=== PATIENT | male | born 1960 | race Caucasian/White ===

== ENCOUNTER → 2016-10-24 | Outpatient (CLI) | payer BC | END | disposition home or self-care (01) | LOC: C.LABBC 09:36 | PROVIDERS: ATTEND Internal Medicine | DX: Z11.59 Encounter for screening for other viral diseases (principal) ==

== ENCOUNTER → 2016-11-29 | Outpatient (CLI) | payer BC ==
[2016-11-29 10:58] LABS: ESTIMATED AVERAGE GLUCOSE 131 mg/dl; HA1C FLAG Normal (Normal)
[2016-11-29 14:01] LABS: ALT/SGPT 53 U/L (12-78); AST/SGOT 28 U/L (15-37); BLOOD UREA NITROGEN 20 mg/dl (7-18); BUN/CREATININE RATIO 18.3 (10-20); CALCIUM 8.7 mg/dl (8.5-10.1); CARBON DIOXIDE 26 mmol/L (21-32); CHLORIDE 105 mmol/L (98-107); GLUCOSE 124 mg/dl (70-99); POTASSIUM 4.5 mmol/L (3.5-5.1); SODIUM 138 mmol/L (136-145)
[2016-11-29 14:04] LABS: ALB/GLOB RATIO 1.2 (0.9-2); ALKALINE PHOSPHATASE 74 U/L (45-117); CHOLESTEROL 183 mg/dl (0-200); HDL CHOLESTEROL 62 mg/dl; LDL CHOLESTEROL CALCULATED 99 mg/dl; TRIGLYCERIDES 110 mg/dl (0-150); VERY LOW DENSITY LIPOPROT CALC 22 mg/dl
== END | disposition home or self-care (01) ==
LOC: C.LABBC 09:02
PROVIDERS: ATTEND Internal Medicine
DX: K76.0 Fatty (change of) liver, not elsewhere classified (principal)

== ENCOUNTER → 2017-06-03 | Outpatient (CLI) | payer BC ==
[2017-06-03 10:55] LABS: ALT/SGPT 67 U/L (12-78); AST/SGOT 39 U/L (15-37); BLOOD UREA NITROGEN 19 mg/dl (7-18); BUN/CREATININE RATIO 17.3 (10-20); CALCIUM 8.8 mg/dl (8.5-10.1); CARBON DIOXIDE 26 mmol/L (21-32); CHLORIDE 103 mmol/L (98-107); CHOLESTEROL 205 mg/dl (0-200); CREATININE 1.09 mg/dl (0.60-1.40); GLUCOSE 116 mg/dl (70-99); POTASSIUM 4.7 mmol/L (3.5-5.1); SODIUM 138 mmol/L (136-145)
[2017-06-03 11:00] LABS: ALB/GLOB RATIO 1.2 (0.9-2); ALKALINE PHOSPHATASE 73 U/L (45-117); CHOLESTEROL/HDL RATIO 3.2; HDL CHOLESTEROL 65 mg/dl; LDL CHOLESTEROL CALCULATED 117 mg/dl; TRIGLYCERIDES 116 mg/dl (0-150); VERY LOW DENSITY LIPOPROT CALC 23 mg/dl
[2017-06-03 11:01] LABS: ESTIMATED AVERAGE GLUCOSE 131 mg/dl; HA1C FLAG Normal (Normal)
== END | disposition home or self-care (01) ==
LOC: C.LABBC 08:57
PROVIDERS: ATTEND Internal Medicine
DX: E78.5 Hyperlipidemia, unspecified (principal); K76.0 Fatty (change of) liver, not elsewhere classified; R73.03 Prediabetes; I10 Essential (primary) hypertension

== ENCOUNTER → 2018-03-05 | Outpatient (CLI) | payer OTHER ==
--- NOTE | 2018-03-06 06:13 | PAP/PSG TECHNICIAN REPORT ---
[facility] Clearing Distribution Clerk Polysomnogram Report Study name: None Report date: 03/06/2018 Study date: 03/05/2018 Referring Physician: DR. Santa LIU Name: JUAN C RICH Interpreting Physician: Misha Hobson M.D. Date of : 1960 Clearing Distribution Clerk: Janell Tinoco, PSGT. Sex: Male Age: 57 StudyType: PSG Weight: 274 lbs Height: 57 years, Height 6' 1.5" Neck Circum:18 inches BMI: 35.66 Medications: Atorvasatin 20 mg, Lisinopril 5 mg, Multi-vit., Fish Oil, Milk Thisle, Cialis 20 mg. Patient History 57-year-old male in room 7, presents for a split night study. states that he snores and has episodes of apnea. He also suffers from fatigue syndrome. Ess= 6 Neck= 18 inches Parameters Monitored NPSG: E1-M2, E2-M1, Fp1-M2, Fp2-M1, F3-M2, F4-M2, F4-M1, C3-M2, C4-M2, C4-M1, O1-M2, O2-M2, O2-M1, T3-M2, T4-M1, P3-M2, P4-M1, CHIN1, CHIN2, HR, EKG, Legs, PFLOW, SNOR, FLOW, CFLOW, Tidal Volume, THOR, ABDO, SpO2, PLTH, CPRESS, ETCO2 Wave, ETCO2, pH Sleep Architecture Sleep Stages Time at Lights Off 10:20:19 PM STAGES Time (min.) TST (%) Time at Lights On 5:36:19 AM Wake 97.5 -- Total Recording Time (TRT) 417.50 min. N1 12.0 4 Total Sleep Period (TSP) 328.0 min. N2 233.0 73 Total Sleep Time (TST) 320.0min. N3 0.0 0 Awake Time 97.5 min. REM 75.0 23 Wake after Sleep Onset 67.5 min. Sleep Efficiency (SE) 77 % Sleep Onset Latency (ABBI) 48.5 min. Number of Stage 1 Shifts None Awakenings 6 Stage Changes 28 Number of REM periods 3 REM 75.0 23 REM Latency 64.5 min. NREM 245.0 77 Body Position Analysis Supine Right Left Side Prone Vertical Total Sleep Time (min.) 72.8 36.5 225.5 262.01 0.0 0.0 Total Sleep Time (%) 18% 11% 70% 82 0% N/A% Total Sleep Time REM (min.) 0.0 21.0 54.0 None 0.0 0.0 Total Sleep Time NREM (min.) 58.0 15.5 171.5 None 0.0 0.0 Intermittent Wake (min.) 14.8 42.6 40.1 None 0.0 0.0 Total Sleep Period (%) 18% None None None None None Arousals Myoclonus (PLM) * Events Count Index Events Count Index Spontaneous 22 4 Events Awake (PLMW) 2 1.2 Respiratory 3 0.6 Events Asleep w/ Arousal (PLMA) 13 2.4 PLM 13 2 Events Asleep w/o Arousal (PLMS) 563 105.6 Snoring 1 0 Total Asleep 576 108.0 Total 39 7 Total 578 83 Respiratory Analysis * CA OA MA CH H RERA Total Count 0 0 1 0 32 0 33 Index 0.0 0.0 0.2 0 6.0 0 6.2 Mean Duration 0.0 0.0 18.6 0.00 21.0 0.0 20.9 Longest Duration 0.0 0.0 18.6 0.00 18.6 0.0 44.0 Respiratory Event Summary Total Supine ~Supine Right Left Prone REM NREM Apneas Count 1 0 1 0 1 N/A 0 1 Index 0.2 0 0 0.0 0.3 N/A 0 0 Hypopneas (4% Desat) Count 32 3 29 23 6 N/A 25 7 Index 6.0 3.1 7 37.8 1.6 N/A 20.0 1.7 Apneas & All Hypopneas Count 33 3 30 23 7 N/A 25 8 Index 6.2 3 7 38 2 N/A 20.0 2.0 Respiratory Events (Public Stenographer+All Hyp+RERA) Count 33 3 30 23 7 N/A 25 8 Index 6.2 3 7 37.8 1.9 N/A 20.0 2.0 Respiratory Related Arousal Count 3 3 3 2 1 N/A 2 1 Index 0.6 0 1 3 0 N/A 2 0 Snoring Analysis Supine Right Left Prone REM NREM Total Snore duration 12.0 min Snores count 389 98 85 N/A 51 521 572 Snore mean duration 1.3 Sec Snores index 402 161 23 N/A 40.8 127.6 107.3 TST with snoring (%) 3.7% Desaturation Event Summary: Minimum %SpO2 Event Count Mean/Min/Max Duration(sec.) Desaturation Index % Time In Bed > 90 36 27.7 / 9.5 / 53.0 7.4 75.6 86 - 90 8 27.3 / 16.8 / 45.8 5.2 23.9 81 - 85 0 N/A 0.0 0.5 76 - 80 0 N/A 0.0 0.0 71 - 75 0 N/A 0.0 0.0 66 - 70 0 N/A 0.0 0.0 61 - 65 0 N/A 0.0 0.0 56 - 60 0 N/A 0.0 0.0 51 - 55 0 N/A 0.0 0.0 < 50 0 N/A 0.0 0.0 Total REM NREM Awake <50% 0.0 min. 0.0 min. 0.0 min. 0.0 min. 51 - 60% 0.0 min. 0.0 min. 0.0 min. 0.0 min. 61 - 70% 0.0 min. 0.0 min. 0.0 min. 0.0 min. 71 - 80% 0.0 min. 0.0 min. 0.0 min. 0.0 min. 81 - 90% 94.3 min. 27.8 min. 62.1 min. 4.4 min. 91 - 100% 292.2 min. 47.2 min. 182.9 min. 62.1 min. Average 92 91 91 93 Minimum SpO2 81 81 85 86 Desaturation Event Index 5.7 17.6 4.4 0.6 # Desat. Events below 89% 23 16 7 0 Time(%) with Saturation below 89% 4.1 2.1 1.8 0.2 Time(min.) with Saturation below 89% 15.7 8.0 7.0 0.7 Time (mins) REM (mins) NREM (mins) % of TST SpO2 Below 90% 37 21 N16 11.4 SpO2 Below 88% 11 0 0 3 Heart Rate Analysis Min (bpm) Max (bpm) Average (bpm) Awake 51 127 66 NREM 49 83 57 REM 49 88 57 Overall 49 88 57 Supplemental O2 Values Minimum O2 level: None Value Start Time End Time Clearing Distribution Clerk Comments PSG Study Mr. Rich slept in the right, left, supine and prone positions. No cardiac arrhythmia. PLM's noted. No bruxism noted. Snoring was noted and scored as a 2 on a scale of 1 through 5. (0=no snoring, 5=snoring loud enough to be heard through a closed door or down the zayas way) Mr. Rich awoke to use the restroom one time during the night. Mr. Rich stated, I did sleep as well as I do when I am in my own bed. The final report will be interpreted and signed by a sleep physician. The completed physician report will then be placed in the patient medical record Patient slept well, he had leg movement often. Mild snoring was displayed. He did not meet split night requirements. Final AHI was 6.2. Test was ended at 5 am when the patient woke to use the restroom. Therapy (cm H2O) 0 TIB (min.) 417.5 TST (min.) 320.0 Sleep Onset (min.) 48.5 REM Onset From Sleep (min.) 64.5 Sleep Efficiency % 77 Wakefulness (%) 22 Wakefulness (min.) 97.5 NREM 1 (%) 4 NREM 1 (min.) 12.0 NREM 2 (%) 73 NREM 2 (min.) 233.0 NREM 3 (%) 0 NREM 3 (min.) 0.0 REM (%) 23 REM (min.) 75.0 # Arousals 39 Arousal Index 7 # Snore 572 Snore Index 107.3 AHI 6.2 AHI Supine 3 AHI Non-Supine 7 NREM AHI 2.0 REM AHI 20.0 RDI 6.2 # Obstructive Apnea 0 # Central Apnea 0 # Mixed Apnea 1 # Hypopneas 32 RERAs 0 Total Respiratory Events 35 Time Below SpO2 89% (min.) 15.0 Mean NREM SpO2 (%) 91 Mean REM SpO2 (%) 91 Mean Sleep SpO2 (%) 91 Min NREM SpO2 (%) 85 Min REM SpO2 (%) 81 Position Supine (min.) 72.8 Position Non-supine (min.) 262.0 LM Index Sleep 108.0 LM Index NREM 136.4 LM Index REM 15.2 Mean Heart Rate (bpm) 57 Min Heart Rate (bpm) 49
--- NOTE | 2018-03-07 16:19 | POLYSOMNOGRAPH REPORT ---
CLINICAL DATA: A 57-year-old male with BMI of 35.[address] Mehdi Crowley with history of loud snoring and episodes of apnea. He also suffers from fatigue. SLEEP ARCHITECTURE: Total sleep period was 328 minutes. Total sleep time was 320 minutes divided between 245 minutes of non-REM sleep and 75 minutes of REM sleep. Sleep latency was delayed at 48.5 minutes. REM latency was 64.5 minutes. Sleep efficiency was 77%. Wake after sleep onset was 67.5 minutes. Sleep consisted of stage N1 4%, stage N2 72%, and REM 23%. AROUSAL DATA: 39 arousals were recorded for an index of 7 per hour. PLM DATA: Severe PLMD was noted. There were 576 limb movements during sleep noted for an index of 108 per hour with an arousal index of 2.4 per hour. RESPIRATORY DATA: Mild sleep apnea was documented. The AHI was 6.2. There were 32 hypopneic episodes with the mean duration of 21 seconds. OXIMETRY DATA: Mild nocturnal hypoxemia was seen. Oxygen tahira was 81% during REM. Mean saturation was 92%. Time below 88% was 11 minutes. EKG: Heart rates ranged from 49-88 beats per minute. No arrhythmias were noted. SPINDLE PLUMBER'S COMMENTS: The patient slept in the right, left, and supine positions, and prone position. Snoring was mild, rated 2 on a scale of 1 through 5. He did not meet split night requirements. IMPRESSION: 1. Mild sleep apnea/hypopnea with an AHI of 6.2 with mild nocturnal hypoxemia. 2. Severe period limb movement disorder with periodic limb movement index of 108 per hour with arousal index of 2.4 per hour. RECOMMENDATIONS: The patient may benefit from use of an oral appliance, repeat sleep study with CPAP, use of auto CPAP, and/or treatment for PLMD/RLS if clinically indicated. Clinical correlation is needed. Sleep medicine consultation may be of benefit. DION
== END | disposition home or self-care (01) ==
LOC: C.NEUR 20:00
PROVIDERS: ATTEND Internal Medicine
DX: G47.33 Obstructive sleep apnea (adult) (pediatric) (principal)

== ENCOUNTER 2023-07-15 10:34 | Inpatient (IN) ==
[2023-07-15] MEDS ORDERED: SODIUM CHLORIDE 0.9% 1,000 ML IV ONE (11:34)
[2023-07-15] MEDS ORDERED: PIPERACILLIN/TAZOBACTAM 4.5 GM in DEXTROSE 5% MINI-B 100 ML IV ONE (11:41)
[2023-07-15 11:48] LABS: Basophils # (auto) 0.05 K/uL (0.00-0.20); Basophils % (auto) 0.3 %; Eosinophils # (auto) 0.05 K/uL (0.00-0.50); Eosinophils % (auto) 0.3 %; Hematocrit (blood only) 35.9 % (42.0-52.0); Hemoglobin 12.1 g/dl (14.0-18.0); Immature Granulocytes # (auto) 0.18 K/uL (0.01-0.20); Immature Granulocytes % (auto) 1.1 %; Lymphocytes # (auto) 1.08 K/uL (1.20-3.40); Lymphocytes % (auto) 6.6 %; Mean Corpuscular Hemoglobin 29.4 pg (25.0-34.0); Mean Corpuscular Hgb Conc 33.7 g/dL (32.0-36.0); Mean Corpuscular Volume 87.3 fL (80.0-100.0); Mean Platelet Volume 8.9 fL (9.4-12.4); Monocytes # (auto) 1.22 K/uL (0.11-0.59); Monocytes % (auto) 7.4 %; Neutrophils # (auto) 13.88 K/uL (1.40-6.50); Neutrophils % (auto) 84.3 %; Platelet Count 249 K/uL (130-400); RDW Coefficient of Variation 12.6 % (11.5-14.5); RDW Standard Deviation 40.1 fL (36.4-46.3); Red Blood Count 4.11 M/uL (4.70-6.10); White Blood Count 16.46 K/ul (4.8-10.8)
--- NOTE | 2023-07-15 11:49 | Emergency Department Note ---
Impression & Plan Cellulitis of left lower limb, Open wound of left ankle, Acute hyponatremia, Sepsis ED Provider Note CHIEF COMPLAINT: Left ankle infection HISTORY OF PRESENTING ILLNESS: This is a 62-year-old male who presents to the emergency department by private vehicle with his with concern for left ankle infection that started about 2 days ago. The patient states that he twisted his ankle on [address], but waited until 4 days ago to be evaluated by a foot doctor. He states that he had x-rays and they told him that he had a high ankle sprain, and he was placed in a boot. He states that he noticed the boot rubbing on his ankle causing some discomfort, but the pain was controlled with tramadol. Two days ago he noticed a blister on the inside of his left ankle and he stopped wearing the boot. Since that time, the blister has broken open and there is now an open wound on the inside of his ankle, as well as increased pain, swelling, and redness throughout the foot and spreading up his calf. The patient now presents with concern for the spreading infection. He denies any known fevers, but has had some chills off and on since yesterday. He is prediabetic and takes metformin. He denies any history of neuropathy or lack of feeling in his feet. He also has a history of atrial flutter and is on Eliquis. He currently rates his pain 5/10. He denies any history of previous injury to this ankle. REVIEW OF SYSTEMS: A complete 10 point review of systems was reviewed with the patient with pertinent positives and negatives as per history of present illness. All else were negative. PAST MEDICAL HISTORY: Hypertension, hyperlipidemia, obstructive sleep apnea, prediabetes, atrial flutter, degenerative arthritis SOCIAL HISTORY: Lives at home with family, he denies tobacco use ALLERGIES: No known drug allergies PHYSICAL EXAM: CONSTITUTIONAL: Pleasant and cooperative. Nontoxic-appearing and no acute distress. Well appearing and well nourished. HEENT: Normocephalic, atraumatic. NECK: Supple, full active range of motion without discomfort. RESPIRATORY: Clear to auscultation bilaterally with no wheezing, crackles, rhonchi or stridor. Equal expansion bilaterally. CARDIOVASCULAR: Regular rate and rhythm with no murmurs, rubs or gallops. Normal peripheral perfusion. No edema. GASTROINTESTINAL: Soft, nontender, nondistended. Bowel sounds present in all quadrants. MUSCULOSKELETAL: The left lower extremity appears brightly erythematous, the skin is hot to the touch and tender to palpation along the medial aspect of the ankle. There is moderate pitting edema throughout the left foot, ankle, and calf. There is a large open wound measuring approximately 5-6 cm in diameter, fluctuant to palpation, oozing serous fluid. No purulence noted. No foul odor appreciated. No palpable crepitus DP pulse 2+ of the left foot. INTEGUMENTARY: No rash or other significant dermatologic conditions noted. NEUROLOGIC: Alert and oriented X 4 with normal affect. Normal strength and sensation in all 4 extremities. Normal speech. ED COURSE AND MEDICAL DECISION MAKING: CC: Patient presenting with complaint of left lower leg infection DIFFERENTIAL DIAGNOSIS: Includes, but not limited to cellulitis, abscess, blister, open fracture, septic joint, osteomyelitis, sepsis, among others. INTERPRETATION OF LABS: Shows leukocytosis with mild anemia, normal platelets, hyponatremia, hypochloremia, hyperglycemia, no other significant electrolyte abnormalities, normal renal function, elevated T. bili, with otherwise normal liver enzymes, elevated CRP and ESR, normal lactate. Mildly elevated coagulation factors. EKG: Indication was sepsis. Shows sinus tachycardia with a rate of 101 bpm, normal intervals, no ST elevation or depression, no ectopy, no significant change when compared to previous EKG from 05/10/2023 by my interpretation. MEDICATION RECONCILIATION: I attest that I have personally reviewed the patient's current medication list. INITIAL VITAL SIGNS REVIEW: I reviewed the patient's initial vital signs and interpret them as follows: T: Afebrile; BP: Mildly hypertensive; HR: Within normal limits; RR: Within normal limit; Pulse Ox: Within normal limits on room air. MDM SUMMARY: Patient was evaluated at bedside, history and physical exam performed. Patient is alert and oriented, in no acute distress, resting calmly in stretcher. Significant infection of the left lower extremity as described above. No palpable crepitus, though there has been moderate expansion of the infection reported over about 48 hours. Serous fluid draining from the wound, no purulence noted. Patient does not currently have a fever, but does note some chills off and on. Heart rate is noted in the 90s, though he is also on a beta-lavon. From the severity of the patient's leg infection, I do have concern for developing sepsis. Orders were placed for labs, blood cultures x 2, lactate, IV fluid bolus for hydration, x-ray imaging of the foot, ankle, and tibia/fibula. I discussed antibiotic choice with the ED pharmacist, who recommended daptomycin and Zosyn, these were ordered per her recommendations. Patient discussed with Dr. Grant, who also evaluated the patient and agrees with my assessment, plan, and disposition. Labs and imaging reviewed, labs are notable for leukocytosis, as well as hyperglycemia and hyponatremia/hypochloremia. Inflammatory markers are elevated. Lactate within normal limits. X-ray imaging notable for soft tissue swelling consistent with a cellulitis, no fracture or osteomyelitis noted by radiologist. Patient with significant open wound and rapidly developing cellulitis of the left lower leg, I did feel the patient warranted admission to the hospital for further treatment and evaluation, and he was agreeable to this plan. I spoke on the phone with Dr. Abraham, hospitalist, who agrees to evaluate the patient for admission. I reassessed the patient after receiving first bolus of fluids. He is noted to be mildly tachycardic 90s-100s. Repeat temp 37.9, concerning for developing fever. I do feel the patient meets sepsis criteria. The patient received 1 L fluid bolus in the ED, the hospitalist team states that they will address additional fluid bolus needs for sepsis. The patient was updated on all results and plan for admission, all questions were answered to the best of my ability and patient was agreeable to this plan. The patient was stable at the time of admission. The chart was completed utilizing [employer] Speech voice recognition software. Grammatical errors, random word insertions, pronoun errors, and incomplete sentences are an occasional consequence of this system due to software limitations, ambient noise, and hardware issues. Any formal questions or concerns about the content, text, or information contained within the body of this dictation should be directly addressed to the nurse practitioner for clarification. Past Med/Surg History Medical History On anticoagulant therapy Gout Atrial flutter B12 deficiency Family history of prostate cancer Osteoarthritis Hyperlipidemia Obstructive sleep apnea Pre-diabetes Hypertension Surgical History History of surgical removal of lesion S/P left knee arthroscopy History of colonoscopy H/O Mohs micrographic surgery for skin cancer H/O hernia repair H/O wisdom tooth extraction Family History Father Prostate cancer Colorectal cancer Mother Hyperlipidemia Lung cancer Hypertension Brother Hyperlipidemia Sister Breast cancer Other No family history of adverse response to anesthesia Denies family history of Ovarian cancer Diabetes Myocardial infarction Stroke Social History Smoking Status: Never smoker Second Hand Exposure: No; Do You Dip or Chew Tobacco: No; Hx Alcohol Use: Yes Alcohol type: beer and wine Alcohol Intake Frequency: 4 or More x per/Week Hx Substance Use: No Preferred Language: Tamazight Communication Ability: Effective Visual Impairment: No Limitations Hearing Ability: Normal Promotions Manager Required: No Beliefs That Will Affect Care: None marital status: Current Living Situation: Spouse current occupational status: employed Other Information That Helps Us Care for You: No Feels Safe at Home: Yes Safety Concerns: Feels Safe At This Time Childhood Exposure to Second-Hand Smoke: No Dental Care, Regularly: Yes Physical Activity Frequency: 5-6 Times per Week Seatbelt Use: always Sunscreen Use: Yes Assistive Devices: Glasses Allergies Allergies Allergy/AdvReac Type Severity Reaction Status Date / Time No Known Drug Allergies Allergy Verified 07/15/23 13:04 Home Meds Home Medications Medication Instructions Recorded Confirmed coenzyme Q10 200 mg capsule (Co 200 mg PO QAM 06/24/19 07/15/23 Q-10) milk thistle 150 mg capsule 150 mg PO QAM 06/24/19 07/15/23 multivitamin 1 tab PO QAM 06/24/19 07/15/23 azelastine 137 mcg (0.1 %) nasal 2 spray intranasal PM rhinitis 07/15/23 07/15/23 spray aerosol fluticasone propionate 50 2 spray intranasal PM nasal 07/15/23 07/15/23 mcg/actuation nasal congestion spray,suspension metformin 500 mg tablet,extended 500 mg PO QAM 07/15/23 07/15/23 release 24 hr omega-3 240 dw-qma-iso-cod liver 1 cap PO QAM 07/15/23 07/15/23 oil 1,000 mg-vit A-vit D3 capsule (cod liver oil) Previous Rx's Medication Instructions Recorded atorvastatin 40 mg tablet 40 mg PO QAM #90 tabs 09/13/22 tadalafil 20 mg tablet 20 mg PO [id number] PRN sexual activity 11/07/22 #6 tabs apixaban 5 mg tablet (Eliquis) 5 mg PO BID #180 tabs 02/18/23 meloxicam 15 mg tablet 15 mg PO DAILY PRN bursitis #30 03/19/23 tabs metoprolol tartrate 25 mg tablet 25 mg PO BID #180 tabs 03/19/23 omeprazole 40 mg capsule,delayed 40 mg PO DAILY PRN other #30 caps 03/19/23 release lisinopril 20 mg tablet 20 mg PO QAM #90 tabs 06/13/23 Results & Data (ED) Vital Signs Vital Signs - 24 hr 07/15/23 10:44 07/15/23 11:08 07/15/23 12:19 Temperature 37.1 C Temperature Source Temporal Artery Scan Pulse Rate 90 99 H Pulse Rate [Right Finger] 91 H Pulse Rate from SpO2 Sensor 99 H Pulse Strength [Right Finger] Normal Respiratory Rate 18 16 14 Respiratory Effort / Characteristics Non-Labored Spontaneous Non-Labored Spontaneous Respiratory Depth Normal Normal Respiratory Pattern Regular Regular Blood Pressure 141/74 H 139/85 Blood Pressure [Left Arm] 129/73 Blood Pressure Mean 96 103 Blood Pressure Mean [Left Arm] 91 Blood Pressure Position Lying Pulse Oximetry 97 97 97 Oxygen Delivery Method Room Air Room Air Room Air Sepsis Recent Fever Within 48 Hours No Sepsis New/Unexplained Change in Mental Status No Sepsis Action Taken by Nursing No Action Required 07/15/23 12:59 07/15/23 13:00 Temperature Temperature Source Pulse Rate 101 H 99 H Pulse Rate [Right Finger] Pulse Rate from SpO2 Sensor 99 H Pulse Strength [Right Finger] Respiratory Rate 21 Respiratory Effort / Characteristics Respiratory Depth Respiratory Pattern Blood Pressure 151/81 H Blood Pressure [Left Arm] Blood Pressure Mean 104 Blood Pressure Mean [Left Arm] Blood Pressure Position Pulse Oximetry 99 Oxygen Delivery Method Room Air Sepsis Recent Fever Within 48 Hours Sepsis New/Unexplained Change in Mental Status Sepsis Action Taken by Nursing Laboratory Data 07/15/23 11:23 07/15/23 11:23 Lab Results 07/15/23 07/15/23 Range/Units 11:23 11:38 WBC 16.46 H (4.8-10.8) K/ul RBC 4.11 L (4.70-6.10) M/uL Hgb 12.1 L (14.0-18.0) g/dl Hct 35.9 L (42.0-52.0) % MCV 87.3 (80.0-100.0) fL MCH 29.4 (25.0-34.0) pg MCHC 33.7 (32.0-36.0) g/dL RDW Std Deviation 40.1 (36.4-46.3) fL RDW Coeff of Marii 12.6 (11.5-14.5) % Plt Count 249 (130-400) K/uL MPV 8.9 L (9.4-12.4) fL Immature Gran % (Auto) 1.1 % Neut % (Auto) 84.3 % Lymph % (Auto) 6.6 % [place] % (Auto) 7.4 % Eos % (Auto) 0.3 % Baso % (Auto) 0.3 % Neut # (Auto) 13.88 H (1.40-6.50) K/uL Lymph # (Auto) 1.08 L (1.20-3.40) K/uL [place] # (Auto) 1.22 H (0.11-0.59) K/uL Eos # (Auto) 0.05 (0.00-0.50) K/uL Baso # (Auto) 0.05 (0.00-0.20) K/uL Immature Gran # (Auto) 0.18 (0.01-0.20) K/uL ESR 67 H (0-20) mm/hr PT 12.4 H (9.0-12.0) Seconds INR 1.1 (0.9-1.1) APTT 41 H (21-31) Seconds PTT Ratio 1.5 Sodium 125 L (136-145) mmol/L Potassium 4.2 (3.5-5.1) mmol/L Chloride 94 L (98-107) mmol/L Carbon Dioxide 23 (21-32) mmol/L Anion Gap 8 (3-11) BUN 10 (6-23) mg/dl Creatinine 0.98 (0.6-1.4) mg/dl Est Cr Clr Drug Dosing 107.3 ml/min Est GFR ( Amer) 94.7 ml/min Est GFR (Non-Af Amer) 81.7 ml/min BUN/Creatinine Ratio 10.2 (10-20) Glucose 234 H (70-99(Fasting)) mg/dl Osmolality 271 L (280-300) mOsm/kg Lactate 1.7 (0.4-2.0) mmol/L Calcium 8.9 (8.6-10.3) mg/dl Magnesium 1.9 (1.7-2.4) mg/dl Total Bilirubin 1.4 H (0.2-1.0) mg/dl AST 12 L (13-39) U/L ALT 12 (7-52) U/L Alkaline Phosphatase 75 (34-104) U/L C-Reactive Protein 29.04 H (0-0.5) mg/dl Total Protein 7.2 (6.0-8.3) gm/dl Albumin 3.7 (3.4-5.0) gm/dl Globulin 3.5 (2.5-4.0) gm/dl Albumin/Globulin Ratio 1.1 (0.9-2) Administered Medications Daptomycin 600 mg/ Syringe 12 mls @ 6 mls/min IV Q24H [facility]; Protocol Stop: 07/22/23 11:44 Last Admin: 07/15/23 12:13 Dose: 6 mls/min Documented By: LIVIER Piperacillin Sod/Tazobactam (Sod 4.5 gm/ Dextrose) 100 mls @ 25 mls/hr IV Q8H [facility]; Protocol Stop: 07/22/23 17:59 Last Admin: 07/15/23 17:22 Dose: 25 mls/hr Documented By: KIERSTEN Insulin Aspart (Insulin Aspart Per Unit Charge) 0 units SC ACHS TAMIKO Stop: 08/14/23 16:29 Last Admin: 07/15/23 17:38 Dose: Not Given Documented By: KIERSTEN Co-signed By: JOHN Discontinued Medications Acetaminophen (Acetaminophen 325 Mg Tab) 650 mg PO NOW STA Stop: 07/15/23 13:40 Last Admin: 07/15/23 14:09 Dose: 650 mg Documented By: LIVIER Sodium Chloride (Nss) 1,000 mls @ 999 mls/hr IV .Q1H1M ONE Stop: 07/15/23 12:34 Last Infusion: 07/15/23 13:17 Dose: Infused Documented By: Admin: 07/15/23 12:14 Dose: 999 mls/hr Documented By: LIVIER Piperacillin Sod/Tazobactam (Sod 4.5 gm/ Dextrose) 100 mls @ 200 mls/hr IV NOW ONE; Protocol Stop: 07/15/23 12:10 Last Infusion: 07/15/23 12:48 Dose: Infused Documented By: Admin: 07/15/23 12:13 Dose: 200 mls/hr Documented By: LIVIER Lactated Ringer's (Lr) 1,000 mls @ 999 mls/hr IV .Q1H1M ONE Stop: 07/15/23 14:34 Last Admin: 07/15/23 17:05 Dose: 999 mls/hr Documented By: KIERSTEN Lactated Ringer's (Lr) 500 mls @ 999 mls/hr IV .Q31M ONE Stop: 07/15/23 14:08 Last Admin: 07/15/23 17:05 Dose: 999 mls/hr Documented By: KIERSTEN Thiamine HCl (Thiamine Hcl 100 Mg/Ml 2 Ml Vial) 100 mg IM NOW STA Stop: 07/15/23 13:43 Last Admin: 07/15/23 14:15 Dose: 100 mg Documented By: LIVIER Imaging Data Radiologist's Impression: Ankle X-Ray 07/15/23 11:31 XR ankle LT min 3V routine CLINICAL HISTORY: injury, infection COMPARISON: None FINDINGS: Alignment of the left ankle is anatomic. No acute fracture. No bony erosions are identified. There is soft tissue swelling. Well-corticated ossicle along the medial malleolus is chronic. Talar dome is intact. Small plantar canal spurring is present. IMPRESSION: 1. No fractures or evidence for osteomyelitis within the left ankle. 2. Ankle soft tissue swelling. ACT 112: Negative or not required by law. Electronically signed by: Danny Vilchis M.D. 07/15/2023 12:24 PM Foot X-Ray 07/15/23 11:31 XR foot LT min 3V routine CLINICAL HISTORY: infection COMPARISON: None FINDINGS: There is hallux valgus. No acute fractures within the left foot are present. No foci of bony destruction are identified to suggest acute osteomyelitis. There is mild joint space narrowing of the left first metatarsophalangeal joint. There are periarticular erosions. Soft tissue amorphous calcific densities are present. IMPRESSION: 1. No fractures. No evidence for acute osteomyelitis within the left foot. 2. Mild joint space narrowing with periarticular erosions of the left first metatarsophalangeal joint. Adjacent soft tissue calcifications. The findings favor gout. Osteoarthritis could appear similar. ACT 112: Negative or not required by law. Electronically signed by: Danny Vilchis M.D. 07/15/2023 12:31 PM Tibia/Fibula X-Ray 07/15/23 11:31 XR tibia fibula LT 2V CLINICAL HISTORY: injury, infection COMPARISON: Left knee radiographs May 01, 2013. MRI of the left knee March 11, 2019. FINDINGS: Subchondral lucency within the medial femoral condyle is degenerative. Anterior left lower leg soft tissue swelling is present. No fracture within the left tibia or fibula is identified. Cortical thickening of the left tibia is likely insertional. No bony erosions are identified. IMPRESSION: 1. No fractures or evidence for osteomyelitis within the left tibia or fibula. 2. Left lower leg soft tissue swelling. ACT 112: Negative or not required by law. Electronically signed by: Danny Vilchis M.D. 07/15/2023 12:23 PM Discharge Plan Visit Data Chief Complaint: Skin Problem Stated Complaint: LEFT ANKLE BLISTER FROM BOOT FROM ANKLE SPRAIN ED Provider: Joaquin Grant ED Midlevel Provider: Patsy Kessler Discharge Problem: Cellulitis of left lower limb, Open wound of left ankle, Acute hyponatremia, Sepsis Patient Disposition: Admitted As Inpatient Discharge Instructions Interventions: ED Discharge Assessment Last Done: 07/15/23 15:36 Discharge Problem: Open wound of left ankle Qualifiers: Encounter type: initial encounter Qualified Code(s): S91.002A - Unspecified open wound, left ankle, initial encounter
[2023-07-15 12:05] LABS: Albumin Globulin Ratio 1.1 (0.9-2); Albumin Level 3.7 gm/dl (3.4-5.0); BUN Creatinine Ratio 10.2 (10-20); Bilirubin,Total 1.4 mg/dl (0.2-1.0); C Reactive Protein 29.04 mg/dl (0-0.5); Calcium 8.9 mg/dl (8.6-10.3); Creatinine Clr Calc Pharmacy 107.3 ml/min; Est GFR (African American) 94.7 ml/min; Est GFR (Non-African American) 81.7 ml/min; Globulin 3.5 gm/dl (2.5-4.0); Potassium 4.2 mmol/L (3.5-5.1); Total Protein 7.2 gm/dl (6.0-8.3)
[2023-07-15] MEDS: DAPTOmycin 600 MG in SYRINGE 0 ML IV SCH (12:13)
--- NOTE | 2023-07-15 12:25 | XRay Report ---
XR ankle LT min 3V routine CLINICAL HISTORY: injury, infection COMPARISON: None FINDINGS: Alignment of the left ankle is anatomic. No acute fracture. No bony erosions are identifie d. There is soft tissue swelling. Well-corticated ossicle along the medial malleolus is chronic. Tammie r dome is intact. Small plantar canal spurring is present. IMPRESSION: 1. No fractures or evidence for osteomyelitis within the left ankle. 2. Ankle soft tissue swelling. ACT 112: Negative or not required by law. Electronically signed by: Danny Vilchis M.D. 07/15/2023 12:24 PM
--- NOTE | 2023-07-15 12:25 | XRay Report ---
XR tibia fibula LT 2V CLINICAL HISTORY: injury, infection COMPARISON: Left knee radiographs May 01, 2013. MRI of the left knee March 11, 2019. FINDINGS: Subchondral lucency within the medial femoral condyle is degenerative. Anterior left lower leg soft tissue swelling is present. No fracture within the left tibia or fibula is identified. Alfonso ical thickening of the left tibia is likely insertional. No bony erosions are identified. IMPRESSION: 1. No fractures or evidence for osteomyelitis within the left tibia or fibula. 2. Left lower leg soft tissue swelling. ACT 112: Negative or not required by law. Electronically signed by: Danny Vilchis M.D. 07/15/2023 12:23 PM
[2023-07-15 12:32] LABS: INR 1.1 (0.9-1.1); Partial Thromboplastin Ratio 1.5; Partial Thromboplastin Time 41 Seconds (21-31); Prothrombin Time 12.4 Seconds (9.0-12.0)
--- NOTE | 2023-07-15 12:33 | XRay Report ---
XR foot LT min 3V routine CLINICAL HISTORY: infection COMPARISON: None FINDINGS: There is hallux valgus. No acute fractures within the left foot are present. No foci of [place] destruction are identified to suggest acute osteomyelitis. There is mild joint space narrowing of the left first metatarsophalangeal joint. There are periarticular erosions. Soft tissue amorphous cristian cific densities are present. IMPRESSION: 1. No fractures. No evidence for acute osteomyelitis within the left foot. 2. Mild joint space narrowing with periarticular erosions of the left first metatarsophalangeal joint . Adjacent soft tissue calcifications. The findings favor gout. Osteoarthritis could appear similar. ACT 112: Negative or not required by law. Electronically signed by: Danny Vilchis M.D. 07/15/2023 12:31 PM
--- NOTE | 2023-07-15 13:20 | History & Physical Report ---
Date of Service July 15, 2023 Assessment & Plan (1) Sepsis: Plan: -Admit to med/tele -Currently stable and non-toxic appearing -Came to the ED with progressive left ankle wound and associated LLE erythema and swelling -Noted to have a large, necrotic left medial ankle wound with associated cellulitis of the LLE -Wound initially started as a blister from his left walking boot from left high ankle sprain -Noted to have a leukocytosis of 16, tachycardic on arrival, with source being his LLE wound and cellulitis -Given 1L NSS, zosyn, and daptomycin in the ED -Lactate WNL -Blood cultures obtained prior to abx -Initial xray of the LLE negative for signs of OM -Continue Zosyn and daptomycin at this time -Will obtain wound culture and consult wound care nurse -Will obtain MRI of the LLE and ankle wo con for further evaluation -Will consult orthopedics and/or podiatry as needed based on MRI results -Will give and additional 1.5L LR to be given for complete his sepsis bolus of 2500 mL -Hold chemical DVT PPX for now if case of OR tomorrow -HH/DMII diet -AM CBC, BMP, mag, PT/INR (2) Acute hyponatremia: Plan: -Patient noted to have a corrected sodium of 127 today -Appears mildly dehydrated on exam -Is a daily beer drinker, 3-4 daily along with wine -Likely a combination of beer drinker's Potomania and dehydration -Is asymptomatic -S/P 1L NSS in the ED, will give 1.5L LR on admission to complete his sepsis bolus -Follow daily renal function and electrolytes (3) Open wound of left ankle: Plan: -See sepsis (4) Cellulitis of left lower limb: Plan: -See sepsis (5) Alcohol abuse: Plan: -Patient reports 3-4 cans of beer daily with occasional glasses of wine as well -Denies previous hx of alcohol withdrawal when he is not drinking -Last drink was approximately 11 pm last night -No signs of active withdrawal at this time -Will give 100 mg IV thiamine and folic acid on admission, continue PO daily tomorrow -Will start at risk AWSS protocol -Monitor on tele -Will obtain mag level (6) Hypertension: Plan: -Stable -Continue lisinopril (7) Pre-diabetes: Plan: -Hold metformin -Monitor BSG ACHS, goal is 110-140 -Start CF 50 ACHS as he is insulin naive -HH/DMII diet -Adjust regimen as needed (8) Atrial flutter: Plan: -Stable -Continue metoprolol -Will hold HS eliquis until MRI results are back. If he will need to go to the OR will continue to hold eliquis Plan The patient was discussed with Dr. Abraham at the time of the admission History of Present Illness Chief Complaint: Left ankle wound Primary Care Provider: DO Daryl Bustamante is a 62 year old male with a PMH significant for prediabetes, atrial flutter on Eliquis, HTN, and EVELYN who presented to the [facility] ED on 07/15/23 with concerns for left ankle wound. He was noted to be tachycardic at 101 but was otherwise stable. Labs were significant for a lekocytosis of 16 with neutrophil predominance of 13, ESR of 67, CRP of 29, glucose of 234, corrected sodium of 127, chloride of 94, total bili of 1.4. Xray of the left ankle wa read as "No fractures or evidence for osteomyelitis within the left ankle. 2. Ankle soft tissue swelling.". Xray of the left foot was read as "1. No fractures. No evidence for acute osteomyelitis within the left foot. 2. Mild joint space narrowing with periarticular erosions of the left first metatarsophalangeal joint. Adjacent soft tissue calcifications. The findings favor gout. Osteoarthritis could appear similar.". And xray of the left tiba/fib was read as "1. No fractures or evidence for osteomyelitis within the left tibia or fibula. 2. Left lower leg soft tissue swelling.". Prior to admission blood cultures were obtained. The patient was given 1L NSS, and a dose of zosyn and daptomycin prior to admission. At the time of the exam the patient was lying in bed in no acute distress. He states that he sustained a high ankle sprain on and was placed in a walking boot after. On 07/13 he took the boot off and noticed that the large blister on the medial aspect of his left ankle opened. He cleaned the wound and wrapped it. Over the past 48 hours he has developed progressive erythema, pustulous drainage, and swelling up the LLE. He states that he felt as though he had a fever but did not take his temperature. He woke up this am with significantly worsening symptoms prompting him to come to the ED. When asked, he states that he drinks approximately 3-4 can of beer daily and also drinks wine. His last drink was approximately 11 pm last night. He denies a previous hx of alcohol withdrawal when he has stopped drinking in the past. He denies current chest pain, SOB, abd pain, nausea, vomiting, diarrhea, dysuria, hematuria, melena, and recent trauma since spraining his left ankle. He is a full code and wishes for his to make medical decisions for him if he cannot make them himself. Please refer to Dr. Abraham's attestation for any changes to the treatment plan Allergies Allergy/AdvReac Type Severity Reaction Status Date / Time No Known Drug Allergies Allergy Verified 07/15/23 13:04 Home Medications Medication Instructions Recorded Confirmed Type coenzyme Q10 200 mg capsule (Co 200 mg PO QAM 06/24/19 07/15/23 History Q-10) milk thistle 150 mg capsule 150 mg PO QAM 06/24/19 07/15/23 History multivitamin 1 tab PO QAM 06/24/19 07/15/23 History atorvastatin 40 mg tablet 40 mg PO QAM #90 tabs 09/13/22 07/15/23 Rx tadalafil 20 mg tablet 20 mg PO 3XWK PRN sexual activity 11/07/22 07/15/23 Rx #6 tabs apixaban 5 mg tablet (Eliquis) 5 mg PO BID #180 tabs 02/18/23 07/15/23 Rx meloxicam 15 mg tablet 15 mg PO DAILY PRN bursitis #30 03/19/23 07/15/23 Rx tabs metoprolol tartrate 25 mg tablet 25 mg PO BID #180 tabs 03/19/23 07/15/23 Rx omeprazole 40 mg capsule,delayed 40 mg PO DAILY PRN other #30 caps 03/19/23 07/15/23 Rx release lisinopril 20 mg tablet 20 mg PO QAM #90 tabs 06/13/23 07/15/23 Rx azelastine 137 mcg (0.1 %) nasal 2 spray intranasal PM rhinitis 07/15/23 07/15/23 History spray aerosol fluticasone propionate 50 2 spray intranasal PM nasal 07/15/23 07/15/23 History mcg/actuation nasal congestion spray,suspension metformin 500 mg tablet,extended 500 mg PO QAM 07/15/23 07/15/23 History release 24 hr omega-3 240 [id number]-gvi-kpt-cod liver 1 cap PO QAM 07/15/23 07/15/23 History oil 1,000 mg-vit A-vit D3 capsule (cod liver oil) Past Med/Surg History Medical History On anticoagulant therapy Gout Atrial flutter B12 deficiency Family history of prostate cancer Osteoarthritis Hyperlipidemia Obstructive sleep apnea Pre-diabetes Hypertension Surgical History History of surgical removal of lesion S/P left knee arthroscopy History of colonoscopy H/O Mohs micrographic surgery for skin cancer H/O hernia repair H/O wisdom tooth extraction Family History Father Prostate cancer Colorectal cancer Mother Hyperlipidemia Lung cancer Hypertension Brother Hyperlipidemia Sister Breast cancer Other No family history of adverse response to anesthesia Denies family history of Ovarian cancer Diabetes Myocardial infarction Stroke Social History Smoking Status: Never smoker Second Hand Exposure: No; Do You Dip or Chew Tobacco: No; Hx Alcohol Use: Yes Alcohol type: beer and wine Alcohol Intake Frequency: 4 or More x per/Week Hx Substance Use: No Preferred Language: Amharic Communication Ability: Effective Visual Impairment: No Limitations Hearing Ability: Normal Wood Crafter Required: No Beliefs That Will Affect Care: None marital status: Current Living Situation: Spouse current occupational status: employed Feels Safe at Home: Yes Childhood Exposure to Second-Hand Smoke: No Dental Care, Regularly: Yes Physical Activity Frequency: 5-6 Times per Week Seatbelt Use: always Sunscreen Use: Yes Assistive Devices: Glasses Physical Exam Physical Exam: Physical Exam: General: In no acute distress, stated age, well-nourished, non-toxic appearing HEENT: Normocephalic, atraumatic, no scleral icterus, pupils around round, symmetrical, and reactive to light, drymucus membranes, trachea midline, no thyromegaly Chest/Pulm: No respiratory distress, symmetrical chest expansion, clear breath sounds throughout Cardiac: RRR, no murmurs noted Abdomen: Negative for ascites and bruising, normoactive bowel sounds, soft, non-tender to palpation throughout Musculoskeletal: Left LE is significantly swollen and erythematous from the distal ankle to the mid left calf, large circular wound overlying the left medial ankle with necrotic tissue and purulent drainage Extremities: Radial, dorsalis pedis, and posterior tibial pulses are intact and symmetrical, LLE erythematous and swollen compared to right Skin: Signs consistent with cellulitis of the LLE with associated drainage left medial ankle wound Neuro: Alert and oriented to person, place, month, year, and president, no focal defects, no tremors noted Psych: No acute distress, calm and cooperative during the exam Results & Data Results & Data Vital Signs (Past 12 Hours) Vital Signs Temp Pulse Pulse Resp BP BP Pulse Ox 07/15/23 12:59 101 H 07/15/23 12:19 99 H 14 139/85 97 07/15/23 11:08 91 H 16 129/73 97 07/15/23 10:44 37.1 C 90 18 141/74 H 97 O2 Del Method 07/15/23 12:59 07/15/23 12:19 Room Air 07/15/23 11:08 Room Air 07/15/23 10:44 Room Air Laboratory Results Abnormal lab results 07/15/23 Range/Units 11:23 WBC 16.46 H (4.8-10.8) K/ul RBC 4.11 L (4.70-6.10) M/uL Hgb 12.1 L (14.0-18.0) g/dl Hct 35.9 L (42.0-52.0) % MPV 8.9 L (9.4-12.4) fL Neut # (Auto) 13.88 H (1.40-6.50) K/uL Lymph # (Auto) 1.08 L (1.20-3.40) K/uL Dickson # (Auto) 1.22 H (0.11-0.59) K/uL ESR 67 H (0-20) mm/hr PT 12.4 H (9.0-12.0) Seconds APTT 41 H (21-31) Seconds Sodium 125 L (136-145) mmol/L Chloride 94 L (98-107) mmol/L Glucose 234 H (70-99(Fasting)) mg/dl Total Bilirubin 1.4 H (0.2-1.0) mg/dl AST 12 L (13-39) U/L C-Reactive Protein 29.04 H (0-0.5) mg/dl Diagnostic Findings Ankle X-Ray 07/15/23 11:31 XR ankle LT min 3V routine CLINICAL HISTORY: injury, infection COMPARISON: None FINDINGS: Alignment of the left ankle is anatomic. No acute fracture. No bony erosions are identified. There is soft tissue swelling. Well-corticated ossicle along the medial malleolus is chronic. Talar dome is intact. Small plantar canal spurring is present. IMPRESSION: 1. No fractures or evidence for osteomyelitis within the left ankle. 2. Ankle soft tissue swelling. ACT 112: Negative or not required by law. Electronically signed by: Danny Vilchis M.D. 07/15/2023 12:24 PM Foot X-Ray 07/15/23 11:31 XR foot LT min 3V routine CLINICAL HISTORY: infection COMPARISON: None FINDINGS: There is hallux valgus. No acute fractures within the left foot are present. No foci of bony destruction are identified to suggest acute osteomyelitis. There is mild joint space narrowing of the left first metatarsophalangeal joint. There are periarticular erosions. Soft tissue amorphous calcific densities are present. IMPRESSION: 1. No fractures. No evidence for acute osteomyelitis within the left foot. 2. Mild joint space narrowing with periarticular erosions of the left first metatarsophalangeal joint. Adjacent soft tissue calcifications. The findings favor gout. Osteoarthritis could appear similar. ACT 112: Negative or not required by law. Electronically signed by: Danny Vilchis M.D. 07/15/2023 12:31 PM Tibia/Fibula X-Ray 07/15/23 11:31 XR tibia fibula LT 2V CLINICAL HISTORY: injury, infection COMPARISON: Left knee radiographs May 01, 2013. MRI of the left knee March 11, 2019. FINDINGS: Subchondral lucency within the medial femoral condyle is degenerative. Anterior left lower leg soft tissue swelling is present. No fracture within the left tibia or fibula is identified. Cortical thickening of the left tibia is likely insertional. No bony erosions are identified. IMPRESSION: 1. No fractures or evidence for osteomyelitis within the left tibia or fibula. 2. Left lower leg soft tissue swelling. ACT 112: Negative or not required by law. Electronically signed by: Danny Vilchis M.D. 07/15/2023 12:23 PM ECG Additional Comments: Sinus tachycardia Otherwise normal ECG When compared with ECG of 10-MAY-2023 15:38, (unconfirmed) No significant change was found Code Status & VTE Plan Code Status Full code VTE Prophylaxis Plan VTE Prophylaxis will be ordered: Yes Supervising Physician Co-Signing Physician Notes Patient was seen and examined independently I discussed the case with Frankie COFFEY I reviewed pertinent past medical social family history and also the plan of care and agree with the plan of care. 62-year-old male who has a very significant wound in his left medial malleolus which she says occurred after being prescribed a rigid boot for an ankle sprain. This wound is approximately 6 x 3 there is beefy red tissue is leaking a cloudy fluid there is macerated tissue surrounding it and there is a cellulitis ascending up his lower leg proximately two [address] Patient denies being a diabetic but is a "prediabetic. He is an alcohol user. Says the wound was not significantly uncomfortable he thought it was just the discomfort from the boot and this started as a blister The remainder of his general physical exam is unrevealing he has had no changes in breathing chest pain appetite bowel habits or urinary habits Significant cellulitis cannot rule out osteomyelitis with a large open wound present on admission to the left medial malleolus in need of wound care tension and possible debridement Broad-spectrum antibiotics Zosyn and daptomycin, MRI scan look for osteomyelitis and surgical consultation will be warranted if found otherwise we will have wound care to evaluate local wound treatment and likely will need outpatient follow-up with the wound care center Any exceptions will be noted below PG Care Time/CCT Total # of Minutes Spent Total Time Spent with Patient: Total time spent is greater than 50% in coordination of care (as documented) at patient's floor/unit and/or counseling patient: Coding [place] [address] INT INP/OBS CARE 3/75MIN Patient Type Established Medical Decision Making High Complexity Diagnoses Sepsis A41.9 Acute hyponatremia E87.1 Open wound of left ankle S91.002A Encounter type: initial encounter Cellulitis of left lower limb L03.116 Alcohol abuse F10.10 Essential hypertension I10 Hypertension type: essential hypertension Pre-diabetes R73.03 Atrial flutter I48.92 (3) Open wound of left ankle Encounter type: initial encounter Qualified Code(s): S91.002A - Unspecified open wound, left ankle, initial encounter (6) Hypertension Hypertension type: essential hypertension Qualified Code(s): I10 - Essential (primary) hypertension
[2023-07-15] MEDS ORDERED: LACTATED RINGER'S 1,000 ML IV ONE (13:34)
[2023-07-15] MEDS ORDERED: LACTATED RINGER'S 500 ML IV ONE (13:38)
[2023-07-15] MEDS ORDERED: ACETAMINOPHEN 325 MG TAB PO STA (13:39)
[2023-07-15] MEDS ORDERED: GLUCOSE 40% GEL 15 GM TUBE PO PRN (13:41)
[2023-07-15] MEDS ORDERED: GLUCAGON FOR INJ 1 MG VIAL SQ PRN (13:41)
[2023-07-15] MEDS ORDERED: GLUCOSE 10 TAB/TUBE PO PRN (13:41)
[2023-07-15] MEDS ORDERED: DEXTROSE 50% 50 ML SYRINGE IV PRN (13:41)
[2023-07-15] MEDS ORDERED: CARBOHYDRATES FOR HYPOGLYCEMIA PO PRN (13:41)
[2023-07-15] MEDS ORDERED: LORazepam 1 MG TAB PO PRN (13:42)
[2023-07-15] MEDS ORDERED: THIAMINE HCL 100 MG/ML 2 ML VIAL IM STA (13:42)
--- NOTE | 2023-07-15 14:19 | Emergency Department Note ---
ED Visit Note I have personally evaluated this patient examined him and reviewed the pertinent labs and data. I have discussed the case with the physician residential living assistant and agree with the plan. Please refer to the [employer] note. This patient comes in after having redness and swelling and a large blister of his medial left malleolus area. On my exam there is marked redness and swelling and skin breakdown but no crepitus. His inflammatory markers are all elevated and I am concerned about significant cellulitis. We did give him IV antibiotics, broad-spectrum and he will be admitted for further treatment and evaluation. .
[2023-07-15 14:20] LABS: Magnesium 1.9 mg/dl (1.7-2.4)
--- NOTE | 2023-07-15 14:48 | Electrocardiogram Report ---
Test Reason : Blood Pressure : / mmHG Vent. Rate : 101 BPM Atrial Rate : 101 BPM P-R Int : 158 ms QRS Dur : 096 ms QT Int : 324 ms P-R-T Axes : 011 -07 028 degrees QTc Int : 420 ms Sinus tachycardia Incomplete right bundle branch block Otherwise normal ECG When compared with ECG of 10-MAY-2023 15:38, No significant change was found Confirmed by Rajan Bailey ([id number]) on 07/15/2023 2:47:41 PM Referred By: REFERRED SELF Confirmed By:Rajan Bailey
[2023-07-15] MEDS ORDERED: PANTOprazole 40 MG TAB PO PRN (15:35)
--- NOTE | 2023-07-15 16:47 | Magnetic Resonance Report ---
MR lower leg LT wo con CLINICAL HISTORY: left ankle/foot infection with tracking up leg COMPARISON STUDY: Left tibia and fibula radiographs performed earlier today. TECHNIQUE: Utilizing a 1.5 Rachel magnet and dedicated coil, multiplanar, multiecho imaging of the lef t lower leg was performed without intravenous contrast. FINDINGS: Please note that the MRI of the left ankle will be reported separately. A subcutaneous flui d collection of the medial left ankle is better depicted on that exam. No additional fluid collection s are identified on this study. There is extensive subcutaneous fluid within the left lower leg. No m arrow edema within the left tibia or fibula is identified. There is no evidence for fracture or osteo myelitis within the left tibia or fibula. The Achilles tendon is intact. There is mild intramuscular edema within the posterior compartment musculature of the left lower leg. No associated fluid collect ions are present. No significant fascial fluid is present. IMPRESSION: 1. No evidence for acute osteomyelitis within the left tibia or fibula. 2. Extensive subcutaneous fluid of the left lower leg. This favors cellulitis. Medial left ankle subc utaneous fluid collection better depicted on the left ankle MRI which will be reported separately. Pl ease see that report for further description. 3. Mild intramuscular edema within the posterior compartment musculature. This suggests a nonspecific myositis. An infectious etiology cannot be excluded. No significant fascial fluid. ACT 112: Negative or not required by law. Electronically signed by: Danny Vilchis M.D. 07/15/2023 4:46 PM
[2023-07-15] MEDS: PIPERACILLIN/TAZOBACTAM 4.5 GM in DEXTROSE 5% MINI-B 100 ML IV SCH (17:22)
[2023-07-15] MEDS: INSULIN ASPART PER UNIT CHARGE SC SCH ×2 (17:38→21:44)
--- NOTE | 2023-07-15 18:14 | Magnetic Resonance Report ---
MRI OF THE LEFT ANKLE WITHOUT CONTRAST CLINICAL HISTORY: Wound and cellulitis of left ankle and LLE. COMPARISON STUDY: Left ankle radiographs July 15, 2023 at 11:51 AM. TECHNIQUE: Utilizing a 1.5 Rachel magnet and dedicated coil, multiplanar, multiecho imaging of the lef t ankle was performed without intravenous or intra-articular contrast. FINDINGS: A medial left ankle wound is noted. Immediately deep to the wound, there is a complex multi loculated subcutaneous fluid collection which measures 3.5 x 2.5 x 1.8 cm. This has slightly T1 hyper intensity. This appears to have a deep and superficial component. There is a possible opening to the skin and may reflect a draining fluid collection. No additional fluid collections are identified. The re is extensive subcutaneous fluid of the left lower leg, ankle and visualized portions of the dorsal foot. No marrow edema is present within the left ankle or hindfoot. The Achilles tendon is intact. P lantar fascia is thickened proximally. Plantar calcaneal spur is present. Subtalar and tibiotalar nino nts are intact. No osteochondral abnormality within the talar dome is present. Partial thickness tear s of the peroneus brevis and longus are present. The peroneus brevis tear is high-grade. The flexor a nd extensor tendons are intact. Intrinsic ligaments of the left ankle are suboptimally assessed on th is exam due to motion artifact. IMPRESSION: 1. Medial left ankle wound. Complex multiloculated 3.5 x 2.5 x 1.8 cm fluid collection immediately de ep to the wound. This may reflect a draining fluid collection. An abscess is favored however a hemato ma could appear similar given slight T1 hyperintensity. Left lower leg, ankle and foot subcutaneous e omero and skin thickening. This favors cellulitis. 2. No evidence for acute osteomyelitis within the left ankle or hindfoot. 3. Tears of the peroneus brevis and longus, as described above. ACT 112: Negative or not required by law. Electronically signed by: Danny Vilchis M.D. 07/15/2023 6:12 PM
[2023-07-15] MEDS: METOPROLOL TARTRATE 25 MG TAB PO SCH (21:38)
[2023-07-16] MEDS: ACETAMINOPHEN 325 MG TAB PO PRN ×2 (00:40→20:56)
[2023-07-16] MEDS ORDERED: MELATONIN 3 MG TAB PO STA ×2 (01:23→21:04)
[2023-07-16] MEDS: PIPERACILLIN/TAZOBACTAM 4.5 GM in DEXTROSE 5% MINI-B 100 ML IV SCH ×2 (03:09→09:25)
--- NOTE | 2023-07-16 06:54 | Hospitalist Progress Note ---
Date of Service July 16, 2023 Assessment & Plan (1) Sepsis: (2) Acute hyponatremia: (3) Alcohol abuse: (4) Hypertension: (5) Hyperlipidemia: (6) Atrial flutter: (7) Cellulitis of left lower limb: (8) Open wound of left ankle: (9) Pre-diabetes: (10) Obstructive sleep apnea: Plan Pt is a 62 yo male with a past medical history of pre-diabetes, alcohol abuse, atrial flutter, EVELYN, HTN, and HLD who presents to the hospital on 07/15/22 for L ankle ulcer and cellulitis. Sepsis Open wound of left ankle Cellulitis of left lower limb - stable and nontoxic appearing but came in with tachy, WBC 16, temp 39 C, lactate wnl - pt denies any leg ulcers or wounds similar to this in the past - recent ABIs this month wnl, pt has prediabetes - ankle MRI; fluid collection deep to wound, abscess vs hematoma, L leg cellulitis, no osteomyelitis - blood cx pending - wound cx pending - pt on IV zosyn and daptomycin, will discontinue to cefazolin instead -Will consult podiatry based on MRI results to evaluate for possible surgical intervention needs Acute hyponatremia, improved -Patient noted to have a corrected sodium of 127 on admission, 131 today - pt asymptomatic - pt given 1L NSS in ED then 1.5L LR Alcohol abuse -Patient reports 3-4 cans of beer daily with occasional glasses of wine as well -Denies previous hx of alcohol withdrawal when he is not drinking -Last drink was 07/14/23 -No signs of active withdrawal at this time - continue PO folate and thiamine daily - AWSS protocol Hypertension -Continue lisinopril Pre-diabetes -Hold metformin -Monitor BSG ACHS, goal is 110-140 -Start CF 50 ACHS as he is insulin naive -HH/DMII diet -Adjust regimen as needed Atrial flutter -Stable -Continue metoprolol EVELYN - pt does not wear cpap at home Hyperlipidemia - home atorvastatin held as pt on daptomycin and thus increases risk for MSK adverse reactions, will resume tomorrow VTE Ppx: holding home eliquis, will do lovenox pending podiatry recommendations for surg Admission and Anticipated Discharge Date Admission Date: July 15, 2023 Supervising Physician Co-Signing Physician Notes I personally examined the patient and verified all deutsch points of history and exam, discussed case, and agree with decision making with Dr Tucker leg pain reasonable. Ongoing exudate coming out of wound. Denies prior recent infections or vascular disease. Denies any numbness or neuropathic symptoms. Vitals noted, in general he is awake and alert pleasant no distress. HEENT normocephalic atraumatic mucous membranes moist. Skin shows left lower extremity erythema about up to his mid ignacio, his medial ankle is a large open wound draining a significant amount of exudate. Breathing unlabored no accessory muscle use. Cellulitis/abscessfortunately no radiographic evidence of osteomyelitis or septic arthritis. Is not severe sepsis/septic shock, nor does he appear to carry significant risk factors for nosocomial pathogens (did show Pseudomonas on a right toe culture from month ago, but nothing appearing overtly concerning for MRSA or Pseudomonas at this time). Antibiotics to cover skin pathogens with cefazolin. Podiatry evaluationanticipate need for source control/debridement. Alcohol abusefortunately no signs or symptoms of withdrawal. Supportive care. DVT prophylaxisLovenox Subjective Pt is a 62 yo male with a past medical history of pre-diabetes, alcohol abuse, atrial flutter, EVELYN, HTN, and HLD who presents to the hospital on 07/15/22 for L ankle ulcer and cellulitis. Today, pt states he is feeling fine. No chest pain or SOB. No nausea or vomiting. He states he had a high ankle sprain the day before [place] and then was seen and given a walking boot 07/11-07/12. He states when he took it off saturday night 07/12 he felt fine and did not notice anything but then when he looked at saturday he noticed a blister on the ankle that popped. From there, he said the wound became more red and worsened and he started to feel fever and chills. No questions or complaints at this time, he states right now he is feeling well. Review of Systems Review of Systems: Per HPI. Physical Exam Physical Exam: General:Alert and oriented, no acute distress, HEENT: Normocephalic, moist oral mucosa, Cardio: Regular rate and rhythm, no murmur, Resp:Lungs clear to auscultation b/l, no wheezes or rhonchi, GI: Soft and nontender, nondistended, bowel sounds active Skin: Warm, pink, dry, Ext: L leg noted to have swelling and erythema with increased warmth from mid ignacio to below ankle/foot with large ulcer noted on medial L ankle with copious fluid drainage Psych: Mood-affect congruence. Results & Data Results & Data Vital Signs (Past 12 Hours) Vital Signs Temp Pulse Pulse Resp BP BP Pulse Ox 07/16/23 04:23 36.9 C 75 18 130/76 94 07/16/23 04:10 84 07/16/23 01:14 36.9 C 87 18 144/81 H 95 07/15/23 22:32 07/15/23 22:00 92 H 24 96 07/15/23 21:30 92 H 14 96 07/15/23 21:14 93 H 23 129/86 97 07/15/23 20:30 91 H 12 97 07/15/23 20:09 94 H 07/15/23 20:00 91 H 19 96 07/15/23 19:30 99 H 17 96 07/15/23 19:00 93 H 20 99 Pulse Ox O2 Del Method O2 Del Method 07/16/23 04:23 Room Air 07/16/23 04:10 07/16/23 01:14 Room Air 07/15/23 22:32 96 Room Air 07/15/23 22:00 Room Air 07/15/23 21:30 Room Air 07/15/23 21:14 Room Air 07/15/23 20:30 Room Air 07/15/23 20:09 07/15/23 20:00 Room Air 07/15/23 19:30 Room Air 07/15/23 19:00 Room Air Resident Activity Tracking Resident Involvement: Resident Care Provided Care Provided: Adult Hospital Medicine (4) Hypertension Hypertension type: essential hypertension Qualified Code(s): I10 - Essential (primary) hypertension (5) Hyperlipidemia Hyperlipidemia type: pure hypercholesterolemia Qualified Code(s): E78.00 - Pure hypercholesterolemia, unspecified; E78.0 - Pure hypercholesterolemia (8) Open wound of left ankle Encounter type: initial encounter Qualified Code(s): S91.002A - Unspecified open wound, left ankle, initial encounter
[2023-07-16] MEDS: INSULIN ASPART PER UNIT CHARGE SC SCH ×4 (08:42→20:27)
[2023-07-16] MEDS: THIAMINE HCL 100 MG TAB PO SCH (08:43)
[2023-07-16] MEDS: METOPROLOL TARTRATE 25 MG TAB PO SCH ×2 (08:43→20:27)
[2023-07-16] MEDS: FOLIC ACID 1 MG TAB PO SCH (08:43)
[2023-07-16] MEDS: lisinopril 20 MG TAB PO SCH (08:44)
[2023-07-16 10:37] LABS: Basophils # (auto) 0.03 K/uL (0.00-0.20); Basophils % (auto) 0.4 %; Eosinophils # (auto) 0.14 K/uL (0.00-0.50); Eosinophils % (auto) 1.6 %; Hematocrit (blood only) 33.4 % (42.0-52.0); Hemoglobin 11.4 g/dl (14.0-18.0); Immature Granulocytes # (auto) 0.08 K/uL (0.01-0.20); Immature Granulocytes % (auto) 0.9 %; Lymphocytes # (auto) 1.26 K/uL (1.20-3.40); Lymphocytes % (auto) 14.7 %; Mean Corpuscular Hemoglobin 29.5 pg (25.0-34.0); Mean Corpuscular Hgb Conc 34.1 g/dL (32.0-36.0); Mean Corpuscular Volume 86.3 fL (80.0-100.0); Mean Platelet Volume 9.2 fL (9.4-12.4); Monocytes # (auto) 0.72 K/uL (0.11-0.59); Monocytes % (auto) 8.4 %; Neutrophils # (auto) 6.33 K/uL (1.40-6.50); Platelet Count 225 K/uL (130-400); RDW Coefficient of Variation 12.8 % (11.5-14.5); RDW Standard Deviation 40.5 fL (36.4-46.3); Red Blood Count 3.87 M/uL (4.70-6.10); White Blood Count 8.56 K/ul (4.8-10.8)
[2023-07-16 10:58] LABS: BUN Creatinine Ratio 12.2 (10-20); Calcium 8.5 mg/dl (8.6-10.3); Creatinine Clr Calc Pharmacy 141.4 ml/min; Est GFR (African American) 113.8 ml/min; Est GFR (Non-African American) 98.2 ml/min; Potassium 3.9 mmol/L (3.5-5.1)
[2023-07-16 11:00] LABS: Estimated Average Glucose 140 mg/dl; Hemoglobin A1C 6.5 % (4.5-5.6)
[2023-07-16 11:07] LABS: INR 1.1 (0.9-1.1)
[2023-07-16] MEDS: DAPTOmycin 600 MG in SYRINGE 0 ML IV SCH (12:00)
[2023-07-16] MEDS ORDERED: DAPTOmycin 600 MG in SYRINGE 0 ML IV SCH (13:00)
[2023-07-16] MEDS: ceFAZolin 2000MG 2,000 MG/15 ML SYR IV SCH (16:22)
--- NOTE | 2023-07-16 17:31 | Billing Data ---
Date of Service July 16, 2023 Coding Level of Care Code 51824 SUB INP/OBS CARE
--- NOTE | 2023-07-16 19:09 | Orthopedic Consultation ---
Date of Consultation July 16, 2023 Assessment & Plan (1) Open wound of left ankle: Patient seen and evaluated in room 277-1. There is abscess forming purulence expressed easily from medial left ankle. Reviewed MRI and MRI images. Discussed left ankle I&D, wash out, and left ankle wound debridement. All questions answered. Patient placed as add-on for 07/17/23. Thank you for involving me in this Patient's care. (2) Cellulitis of left lower limb: (3) Sepsis: History of Present Illness Attending Physician: Laz Johnson DO History of Present Illness Patient is a 62 year old male seen at bedside in room 277-1 for left ankle ulcer and cellulitis. Patient has a past medical history significant for pre-diabetes, alcohol abuse, atrial flutter, EVELYN, HTN, and HLD . Patient presented to [facility] Emergency Department one day earlier (07/15/22) for wound care. MRI shows medial left ankle abscess. Patient states he had a high ankle sprain the day before and then was seen and given a walking boot 07/11-07/12. He states when he took it off Saturday night 07/12 he felt fine and did not notice anything but then when he looked at Saturday he noticed a blister on the ankle that popped. From there, he said the wound became more red and worsened and he started to feel fever and chills. No questions or complaints at this time, he states right now he is feeling well. Allergies Allergy/AdvReac Type Severity Reaction Status Date / Time No Known Drug Allergies Allergy Verified 07/15/23 13:04 Home Medications Medication Instructions Recorded Confirmed Type coenzyme Q10 200 mg capsule (Co 200 mg PO QAM 06/24/19 07/15/23 History Q-10) milk thistle 150 mg capsule 150 mg PO QAM 06/24/19 07/15/23 History multivitamin 1 tab PO QAM 06/24/19 07/15/23 History atorvastatin 40 mg tablet 40 mg PO QAM #90 tabs 09/13/22 07/15/23 Rx tadalafil 20 mg tablet 20 mg PO 3XWK PRN sexual activity 11/07/22 07/15/23 Rx #6 tabs apixaban 5 mg tablet (Eliquis) 5 mg PO BID #180 tabs 02/18/23 07/15/23 Rx meloxicam 15 mg tablet 15 mg PO DAILY PRN bursitis #30 03/19/23 07/15/23 Rx tabs metoprolol tartrate 25 mg tablet 25 mg PO BID #180 tabs 03/19/23 07/15/23 Rx omeprazole 40 mg capsule,delayed 40 mg PO DAILY PRN other #30 caps 03/19/23 07/15/23 Rx release lisinopril 20 mg tablet 20 mg PO QAM #90 tabs 06/13/23 07/15/23 Rx azelastine 137 mcg (0.1 %) nasal 2 spray intranasal PM rhinitis 07/15/23 History spray aerosol fluticasone propionate 50 2 spray intranasal PM nasal 07/15/23 07/15/23 History mcg/actuation nasal congestion spray,suspension metformin 500 mg tablet,extended 500 mg PO QAM 07/15/23 07/15/23 History release 24 hr omega-3 240 ha-xrx-umu-cod liver 1 cap PO QAM 07/15/23 07/15/23 History oil 1,000 mg-vit A-vit D3 capsule (cod liver oil) Patient History Medical History On anticoagulant therapy eliquis bid for Aflutter Gout 03/19/23 ED visit and 03/21/23 ortho visit: L wrist pain and swelling with redness attributed to gout vs pseudogout flare and was tx with meloxicam Atrial flutter diagnosed 02/2023--on eliquis B12 deficiency Family history of prostate cancer Osteoarthritis R knee injection with ortho 03/21/23 Hyperlipidemia Obstructive sleep apnea no device; pt noncompliant previously 2/2 discomfort (PCP referred to sleep medicine at 03/15/23 visit) Pre-diabetes metformin Hypertension Surgical History History of surgical removal of lesion S/P left knee arthroscopy History of colonoscopy H/O Mohs micrographic surgery for skin cancer H/O hernia repair H/O wisdom tooth extraction Family History Father , age 64 Prostate cancer Colorectal cancer Mother Hyperlipidemia Lung cancer Hypertension Brother Hyperlipidemia Sister Breast cancer Other No family history of adverse response to anesthesia Denies family history of Ovarian cancer Diabetes Myocardial infarction Stroke Social History Smoking Status: Never smoker Second Hand Exposure: No; Do You Dip or Chew Tobacco: No; Hx Alcohol Use: Yes Alcohol type: beer and wine Alcohol Intake Frequency: 4 or More x per/Week Hx Substance Use: No Preferred Language: Korean Communication Ability: Effective Visual Impairment: No Limitations Hearing Ability: Normal Student Teacher Required: No Beliefs That Will Affect Care: None marital status: Current Living Situation: Spouse current occupational status: employed Other Information That Helps Us Care for You: No Feels Safe at Home: Yes Safety Concerns: Feels Safe At This Time Childhood Exposure to Second-Hand Smoke: No Dental Care, Regularly: Yes Physical Activity Frequency: 5-6 Times per Week Seatbelt Use: always Sunscreen Use: Yes Assistive Devices: Glasses Review of Systems Review of Systems: All systems reviewed & are unremarkable except as noted in HPI & below Physical Exam Constitutional: well developed, well nourished, cooperative and comfortable Eyes: normal visual bettencourt by confrontation Neck: normal visual inspection and trachea midline Respiratory: normal respiratory effort Cardiovascular: Rate/Rhythm: regular rate and regular rhythm Vessels: posterior tibial pulses present and dorsalis pedis pulses present Musculoskeletal: Extremities: extremities normal to inspection Skin: + ulcer (left medial ankle ulcer full th ickness), + erythema (left foot, ankle, leg) and + fluctulance (Left medial ankle expressing purulent drainage) Neurologic: moves all extremities (Absent epicritic sensation to lower extremities) Psychiatric: Orientation: alert and oriented x 3 Results & Data Vital Signs (Past 12 Hours) Vital Signs Temp Pulse Pulse Resp BP Pulse Ox O2 Del Method 07/16/23 15:19 36.8 C 72 16 111/52 L 93 Nasal Cannula 07/16/23 14:17 75 07/16/23 10:52 36.8 C 68 18 131/77 93 Room Air 07/16/23 07:33 36.6 C 76 18 135/80 98 Room Air O2 Flow Rate 07/16/23 15:19 2 07/16/23 14:17 07/16/23 10:52 07/16/23 07:33 Diagnostic Findings [facility], [place] [phone] Magnetic Resonance Report Patient: JUAN C RICH Admit Date: 07/15/23 MR#: [id number] Address1: [address] [place] [address] Acct ID:[id number] Address2: Date: 1960 [facility] Zip: [place] [id number] Age: 62 Location: [facility] Sex: M Room/Bed: [facility] 1-6 Att Phy: Drew Abraham MD Diagnosis: LEFT ANKLE WOUND [place] Phy: Carolyn Kennedy DO Service Date: 07/15/23 Fam Phy: Interpreting Phy: Danny Vilchis MDAdmit Phy: Drew Abraham MD Ordering Phy: Frankie Gil PA-C cc: ~ MRI OF THE LEFT ANKLE WITHOUT CONTRAST CLINICAL HISTORY: Wound and cellulitis of left ankle and LLE. COMPARISON STUDY: Left ankle radiographs July 15, 2023 at 11:51 AM. TECHNIQUE: Utilizing a 1.5 Rachel magnet and dedicated coil, multiplanar, multiecho imaging of the left ankle was performed without intravenous or intra-articular contrast. FINDINGS: A medial left ankle wound is noted. Immediately deep to the wound, there is a complex multiloculated subcutaneous fluid collection which measures 3.5 x 2.5 x 1.8 cm. This has slightly T1 hyperintensity. This appears to have a deep and superficial component. There is a possible opening to the skin and may reflect a draining fluid collection. No additional fluid collections are identified. There is extensive subcutaneous fluid of the left lower leg, ankle and visualized portions of the dorsal foot. No marrow edema is present within the left ankle or hindfoot. The Achilles tendon is intact. Plantar fascia is thickened proximally. Plantar calcaneal spur is present. Subtalar and tibiotalar joints are intact. No osteochondral abnormality within the talar dome is present . Partial thickness tears of the peroneus brevis and longus are present. The peroneus brevis tear is high-grade. The flexor and extensor tendons are intact. Intrinsic ligaments of the left ankle are suboptimally assessed on this exam due to motion artifact. IMPRESSION: 1. Medial left ankle wound. Complex multiloculated 3.5 x 2.5 x 1.8 cm fluid collection immediately deep to the wound. This may reflect a draining fluid collection. An abscess is favored however a hematoma could appear similar given slight T1 hyperintensity. Left lower leg, ankle and foot subcutaneous edema and skin thickening. This favors cellulitis. 2. No evidence for acute osteomyelitis within the left ankle or hindfoot. 3. Tears of the peroneus brevis and longus, as described above. ACT 112: Negative or not required by law. Electronically signed by: Danny Vilchis M.D. 07/15/2023 6:12 PM Dictated: 07/15/23 1557 Transcribed: 07/15/23 1606 (1) Open wound of left ankle Encounter type: initial encounter Qualified Code(s): S91.002A - Unspecified open wound, left ankle, initial encounter
[2023-07-16] MEDS ORDERED: SODIUM CHLORIDE 0.65% NA SOLN 45 ML (OCEAN) PRN (22:34)
[2023-07-17] MEDS: ceFAZolin 2000MG 2,000 MG/15 ML SYR IV SCH ×3 (00:13→16:06)
[2023-07-17] MEDS ORDERED: Nursing to Pharmacy Communication SCH (00:45)
[2023-07-17] MEDS: INSULIN ASPART PER UNIT CHARGE SC SCH ×4 (05:55→20:58)
--- NOTE | 2023-07-17 06:57 | Hospitalist Progress Note ---
Date of Service July 17, 2023 Assessment & Plan (1) Sepsis: (2) Acute hyponatremia: (3) Alcohol abuse: (4) Hypertension: (5) Hyperlipidemia: (6) Atrial flutter: (7) Cellulitis of left lower limb: (8) Open wound of left ankle: (9) Pre-diabetes: (10) Obstructive sleep apnea: Plan Pt is a 62 yo male with a past medical history of pre-diabetes, alcohol abuse, atrial flutter, EVELYN, HTN, and HLD who presents to the hospital on 07/15/22 for L ankle ulcer and cellulitis. Today, pt to have I+D/debridement with Dr. Cohen this afternoon. Continue IV cefazolin. Sepsis Open wound of left ankle Cellulitis of left lower limb - stable and nontoxic appearing but came in with tachy, WBC 16, temp 39 C, lactate wnl - pt denies any leg ulcers or wounds similar to this in the past - recent ABIs this month wnl, pt has prediabetes - ankle MRI; fluid collection deep to wound, abscess vs hematoma, L leg cellulitis, no osteomyelitis - blood cx pending - wound cx pending - continue IV cefazolin - consulted podiatry; I+D/debridement to be done today Acute hyponatremia, improved -Patient noted to have a corrected sodium of 127 on admission, 131 today - pt asymptomatic - pt given 1L NSS in ED then 1.5L LR Alcohol abuse -Patient reports 3-4 cans of beer daily with occasional glasses of wine as well -Denies previous hx of alcohol withdrawal when he is not drinking -Last drink was 07/14/23 -No signs of active withdrawal at this time - continue PO folate and thiamine daily - AWSS protocol Hypertension -Continue lisinopril Pre-diabetes -Hold metformin -Monitor BSG ACHS, goal is 110-140 -Start CF 50 ACHS as he is insulin naive -HH/DMII diet -Adjust regimen as needed Atrial flutter -Stable -Continue metoprolol EVELYN - pt does not wear cpap at home Hyperlipidemia - home atorvastatin held as pt on daptomycin and thus increases risk for MSK adv erse reactions, will resume tomorrow VTE Ppx: holding home eliquis, on lovenox but held today due to surg this afternoon Admission and Anticipated Discharge Date Admission Date: July 15, 2023 Supervising Physician Co-Signing Physician Notes I personally examined the patient and verified all deutsch points of history and exam, discussed case, and agree with decision making with Dr Tucker leg pain reasonable. Ongoing exudate coming out of wound. For operating room later today. Vitals noted, in general he is awake and alert pleasant no distress. HEENT normocephalic atraumatic mucous membranes moist. Skin shows left lower extremity erythema Improving nicelyreally more of a dull redness consistent with resolving erythema, appears to have receded and is less dense overall, his medial ankle is a large open wound draining a significant amount of exudate. Breathing unlabored no accessory muscle use. Cellulitis/abscessfortunately no radiographic evidence of osteomyelitis or septic arthritis. did not present with severe sepsis/septic shock, nor does he appear to carry significant risk factors for nosocomial pathogens (did show Pseudomonas on a right toe culture from month ago, but nothing appearing overtly concerning for MRSA or Pseudomonas at this time). continue antibiotics to cover skin pathogens with cefazolin. podiatry input appreciated4 OR later today. Alcohol abusefortunately no signs or symptoms of withdrawal. Supportive care. DVT prophylaxisLovenox (on hold pending OR) Subjective Pt is a 62 yo male with a past medical history of pre-diabetes, alcohol abuse, atrial flutter, EVELYN, HTN, and HLD who presents to the hospital on 07/15/22 for L ankle ulcer and cellulitis. Today, pt states he is feeling fine. He states he is anticipating surgery this after noon with Dr. Cohen and is hopefully that if everything goes well he can go home before the weekend. Last food intake was last night and he had been tolerating food without issue. No questions or concerns at this point in time. No chest pain, SOB, fever, chills, or nausea or vomiting. Review of Systems Review of Systems: Per HPI. Physical Exam Physical Exam: General:Alert and oriented, no acute distress, HEENT: Normocephalic, moist oral mucosa, Cardio: Regular rate and rhythm, no murmur, Resp:Lungs clear to auscultation b/l, no wheezes or rhonchi, GI: Soft and nontender, nondistended, bowel sounds active Skin: Warm, pink, dry, Psych: Mood-affect congruence. Results & Data Results & Data Vital Signs (Past 12 Hours) Vital Signs Temp Pulse Pulse Resp BP Pulse Ox O2 Del Method 07/17/23 04:04 68 07/16/23 23:53 36.7 C 68 18 152/81 H 94 Room Air 07/16/23 20:29 36.5 C 84 17 148/82 H 94 Room Air Resident Activity Tracking Resident Involvement: Resident Care Provided Care Provided: Adult Hospital Medicine (4) Hypertension Hypertension type: essential hypertension Qualified Code(s): I10 - Essential (primary) hypertension (5) Hyperlipidemia Hyperlipidemia type: pure hypercholesterolemia Qualified Code(s): E78.00 - Pure hypercholesterolemia, unspecified; E78.0 - Pure hypercholesterolemia (8) Open wound of left ankle Encounter type: initial encounter Qualified Code(s): S91.002A - Unspecified open wound, left ankle, initial encounter
[2023-07-17 07:19] LABS: Basophils # (auto) 0.03 K/uL (0.00-0.20); Basophils % (auto) 0.4 %; Eosinophils # (auto) 0.22 K/uL (0.00-0.50); Eosinophils % (auto) 2.9 %; Hematocrit (blood only) 34.3 % (42.0-52.0); Hemoglobin 11.4 g/dl (14.0-18.0); Immature Granulocytes # (auto) 0.07 K/uL (0.01-0.20); Immature Granulocytes % (auto) 0.9 %; Lymphocytes # (auto) 1.52 K/uL (1.20-3.40); Lymphocytes % (auto) 20.2 %; Mean Corpuscular Hemoglobin 29.3 pg (25.0-34.0); Mean Corpuscular Hgb Conc 33.2 g/dL (32.0-36.0); Mean Corpuscular Volume 88.2 fL (80.0-100.0); Mean Platelet Volume 8.9 fL (9.4-12.4); Monocytes # (auto) 0.89 K/uL (0.11-0.59); Monocytes % (auto) 11.8 %; Neutrophils # (auto) 4.79 K/uL (1.40-6.50); Neutrophils % (auto) 63.8 %; Platelet Count 230 K/uL (130-400); RDW Coefficient of Variation 12.6 % (11.5-14.5); RDW Standard Deviation 41.1 fL (36.4-46.3); Red Blood Count 3.89 M/uL (4.70-6.10); White Blood Count 7.52 K/ul (4.8-10.8)
[2023-07-17 07:28] LABS: BUN Creatinine Ratio 10.7 (10-20); Calcium 8.6 mg/dl (8.6-10.3); Creatinine Clr Calc Pharmacy 139.6 ml/min; Est GFR (African American) 113.2 ml/min; Est GFR (Non-African American) 97.6 ml/min; Potassium 4.3 mmol/L (3.5-5.1)
[2023-07-17 07:51] LABS: INR 1.1 (0.9-1.1); Prothrombin Time 11.5 Seconds (9.0-12.0)
[2023-07-17] MEDS ORDERED: ENOXAPARIN INJ 40 MG/0.4 ML SYR SQ SCH (09:00)
[2023-07-17] MEDS: THIAMINE HCL 100 MG TAB PO SCH (09:12)
[2023-07-17] MEDS: lisinopril 20 MG TAB PO SCH (09:12)
[2023-07-17] MEDS: METOPROLOL TARTRATE 25 MG TAB PO SCH ×2 (09:12→20:58)
[2023-07-17] MEDS: FOLIC ACID 1 MG TAB PO SCH (09:12)
--- NOTE | 2023-07-17 14:56 | Billing Data ---
Date of Service July 17, 2023 Coding Level of Care Code 42173 SUB INP/OBS CARE
[2023-07-17] MEDS ORDERED: MIDAZOLAM HCL 1 MG/ML 2ML VIAL ONE (15:51)
[2023-07-17] MEDS ORDERED: fentaNYL citrate PF 100 MCG/2 ML VIAL ONE (15:51)
[2023-07-17] MEDS ORDERED: ONDANSETRON INJ 2 MG/ML 2 ML VIAL ONE (15:55)
[2023-07-17] MEDS ORDERED: LIDOCAINE 2% 2 ML VIAL/AMP(20MG/ML) INFIL ONE (15:55)
[2023-07-17] MEDS ORDERED: DEXAMETHASONE SOD INJ 4 MG/ML VIAL ONE ×2 (15:55→16:48)
[2023-07-17] MEDS ORDERED: PROPOFOL IV EMULSION 10 MG/ML 20 ML VIAL IV ONE (15:55)
[2023-07-17] MEDS ORDERED: HYDROmorphone INJ 1 MG/ML SYRINGE IV PRN (17:17)
[2023-07-17] MEDS ORDERED: ePHEDrine sulfate 50 MG/ML AMP IV PRN (17:17)
[2023-07-17] MEDS ORDERED: LABETALOL HCL IV 5 MG/ML 20ML IV PRN (17:17)
[2023-07-17] MEDS ORDERED: FLUMAZENIL 0.1 MG/1 ML 10 ML VIAL IV PRN (17:17)
[2023-07-17] MEDS ORDERED: NALOXONE HCL 0.4 MG/1 ML VIAL/CARP IV PRN (17:17)
[2023-07-17] MEDS ORDERED: ATROPINE SULFATE 0.1 MG/ML 10ML SYR IV PRN (17:17)
[2023-07-17] MEDS ORDERED: PROMETHAZINE HCL 12.5 MG in SODIUM CHLORIDE 0.9% 50 ML IV PRN (17:17)
[2023-07-17] MEDS ORDERED: fentaNYL citrate PF 100 MCG/2 ML VIAL IV PRN (17:17)
[2023-07-17] MEDS ORDERED: ONDANSETRON INJ 2 MG/ML 2 ML VIAL IV PRN (17:17)
--- NOTE | 2023-07-17 17:17 | Anesthesiology Consultation ---
Date of Service July 17, 2023 Assessment & Plan Chart Review Chart Review: Acceptable Risk for Surgery and Patient NOT seen in Pre Admission Testing Consults Requested none ASA ASA4 Proposed Anesthesia Anesthesia Type: MAC Risk / Benefits Reviewed With: PT / POA / Parent / Guardian, Accepts Plan and Informed Consent Obtained History Surgery Operation Date: 07/17/23 14:50 Proposed Procedures p Left Ankle Incision and Drainage, Debridment - Misha Choen, EVELIAM, MS Height/Weight Height: 6 ft 2 in Weight: 121.5 kg Allergies Allergy/AdvReac Type Severity Reaction Status Date / Time No Known Drug Allergies Allergy Verified 07/15/23 13:04 Medications Home Medications Medication Instructions Recorded Confirmed Last Taken coenzyme Q10 200 mg capsule (Co 200 mg PO QAM 06/24/19 07/15/23 07/15/23 Q-10) milk thistle 150 mg capsule 150 mg PO QAM 06/24/19 07/15/23 07/15/23 multivitamin 1 tab PO QAM 06/24/19 07/15/23 07/15/23 atorvastatin 40 mg tablet 40 mg PO QAM #90 tabs 09/13/22 07/15/23 07/15/23 tadalafil 20 mg tablet 20 mg PO [id number] PRN sexual activity 11/07/22 07/15/23 Unknown #6 tabs apixaban 5 mg tablet (Eliquis) 5 mg PO BID #180 tabs 02/18/23 07/15/23 07/15/23 meloxicam 15 mg tablet 15 mg PO DAILY PRN bursitis #30 03/19/23 07/15/23 Unknown tabs metoprolol tartrate 25 mg tablet 25 mg PO BID #180 tabs 03/19/23 07/15/23 07/15/23 omeprazole 40 mg capsule,delayed 40 mg PO DAILY PRN other #30 caps 03/19/23 07/15/23 Unknown release lisinopril 20 mg tablet 20 mg PO QAM #90 tabs 06/13/23 07/15/23 07/15/23 azelastine 137 mcg (0.1 %) nasal 2 spray intranasal PM rhinitis 07/15/23 07/15/23 07/14/23 spray aerosol fluticasone propionate 50 2 spray intranasal PM nasal 07/15/23 07/15/23 07/14/23 mcg/actuation nasal congestion spray,suspension metformin 500 mg tablet,extended 500 mg PO QAM 07/15/23 07/15/23 07/15/23 release 24 hr omega-3 240 po-kea-gaa-cod liver 1 cap PO QAM 07/15/23 07/15/23 07/15/23 oil 1,000 mg-vit A-vit D3 capsule (cod liver oil) Active Medications Generic Name Dose Route Start Last Admin Trade Name Freq PRN Reason Stop Dose Admin Acetaminophen 650 mg 07/15/23 15:35 07/16/23 20:56 Acetaminophen 325 Mg Tab PO 08/14/23 15:34 650 mg Q6H PRN Administration pain(1-4),headache,fever Folic Acid 1 mg 07/16/23 09:00 07/17/23 09:12 Folic Acid 1 Mg Tab PO 08/15/23 08:59 1 mg QAM TAMIKO Administration Cefazolin Sodium 2,000 mg in 15 mls @ 3.75 mls/min 07/16/23 16:00 07/17/23 16:06 Ancef 2000mg IV 07/23/23 15:59 3.75 mls/min Q8H TAMIKO Administration Insulin Aspart 0 units 07/17/23 06:00 07/17/23 12:00 Insulin Aspart Per Unit Charge SC 08/16/23 05:59 Not Given Q6 TAMIKO Lisinopril 20 mg 07/16/23 09:00 07/17/23 09:12 Lisinopril 20 Mg Tab PO 08/15/23 08:59 20 mg QAM TAMIKO Administration Metoprolol Tartrate 25 mg 07/15/23 21:00 07/17/23 09:12 Metoprolol Tartrate 25 Mg Tab PO 08/14/23 20:59 25 mg BID TAMIKO Administration Thiamine HCl 100 mg 07/16/23 09:00 07/17/23 09:12 Thiamine Hcl 100 Mg Tab PO 08/15/23 08:59 100 mg QAM TAMIKO Administration NPO Date Last Intake of Fluids: 07/17/23 Time Last Intake of Fluids: 08:00 Last Intake of Fluids Comment: sips of water with meds Date Last Intake of Solids: 07/16/23 Time Last Intake of Solids: 21:00 Past Medical History Medical History On anticoagulant therapy eliquis bid for Aflutter Gout 03/19/23 ED visit and 03/21/23 ortho visit: L wrist pain and swelling with redness attributed to gout vs pseudogout flare and was tx with meloxicam Atrial flutter diagnosed 02/2023--on eliquis B12 deficiency Family history of prostate cancer Osteoarthritis R knee injection with ortho 03/21/23 Hyperlipidemia Obstructive sleep apnea no device; pt noncompliant previously 2/2 discomfort (PCP referred to sleep medicine at 03/15/23 visit) Pre-diabetes metformin Hypertension obese Hx/o ETOH abuse Exercise / Class Metabolic Activity III < 4 Walking/Shop/Light housework Past Family History Family History Father , age 64 Prostate cancer Colorectal cancer Mother Hyperlipidemia Lung cancer Hypertension Brother Hyperlipidemia Sister Breast cancer Other No family history of adverse response to anesthesia Denies family history of Ovarian cancer Diabetes Myocardial infarction Stroke Past Surgical History Surgical History History of surgical removal of lesion S/P left knee arthroscopy History of colonoscopy H/O Mohs micrographic surgery for skin cancer H/O hernia repair H/O wisdom tooth extraction Past Anesthesia History No Hx of Anesthesia Complications and No Family Hx of Anesthesia Complications History of PONV No Hx of PONV and No Hx of Motion Sickness Social History Smoking Status: Never smoker Do You Dip or Chew Tobacco: No Hx Alcohol Use: Yes Alcohol type: beer and wine alcohol intake frequency: 3 or more drinks per day Hx Substance Use: No substance use type: does not use Physical Exam Vital Signs Last Vital Signs Temp 37.6 C H 07/17/23 17:02 Pulse 72 07/17/23 17:02 Resp 15 07/17/23 17:02 BP 152/106 H 07/17/23 17:02 Pulse Ox 95 07/17/23 17:02 O2 Del Method Room Air 07/17/23 17:02 O2 Flow Rate 2 07/16/23 15:19 Constitutional + obese; no acute distress ENMT Mouth: no dentition abnormality Thyromental Distance: > or= 3.5 Finger Breadths Mallampati Class: II Neck normal visual inspection and trachea midline; neck extension not limited Respiratory normal respiratory effort Auscultation: lungs clear to auscultation bilaterally Cardiovascular Rate/Rhythm: regular rate and regular rhythm Heart Sounds: no murmur Vessels: no carotid bruit Musculoskeletal Spine: normal cervical ROM and no pain with cervical ROM Extremities: extremities normal to inspection; full ROM of extremities Skin + lesion (left ankle) Neurologic moves all extremities Motor/Sensory: + sensory deficit (LE's) Psychiatric Orientation: alert and oriented x 3 Testing Laboratory Results 07/17/23 06:40 07/17/23 06:40 PT 11.5 Seconds (9.0-12.0) 07/17/23 06:40 INR 1.1 (0.9-1.1) 07/17/23 06:40 APTT 41 Seconds (21-31) H 07/15/23 11:23 Hemoglobin A1c 6.5 % (4.5-5.6) H 07/16/23 09:47 07/16/23 12:45 Gram Stain - Final Ankle,Left Wound Culture - Preliminary Group A Beta Strep 07/15/23 11:23 Aerobic Blood Culture - Preliminary Blood No growth in Aerobic bottle after 48 hours. Anaerobic Blood Culture - Preliminary No growth in Anaerobic bottle after 48 hours. 07/15/23 11:38 Aerobic Blood Culture - Preliminary Blood No growth in Aerobic bottle after 48 hours. Anaerobic Blood Culture - Preliminary No growth in Anaerobic bottle after 48 hours. 07/17/23 07/17/23 07/17/23 17:10 11:49 05:47 POC Glucose 104 H 120 H 135 H Electrocardiogram Date: 07/15/23 Findings: + ST @ (@ 101;IRBBB) Echocardiogram Date: 04/09/23 EF: 45% LV Function: dysfunctional RWMA: + hypokinetic Other Findings: + atrial enlargement (RA/LA-moderately dilated) and + LVH (mild) Valvular Disease: + MR (moderate)
--- NOTE | 2023-07-17 17:24 | History & Physical Bridge Note ---
Date of Service July 17, 2023 History & Physical Bridge Note I have examined the patient, reviewed the History & Physical and in the interval since the performance of the History & Physical I have noted the following changes of clinical significance: no changes noted
[2023-07-17] MEDS ORDERED: KETAMINE HCL 10MG/ML SYR ONE (17:33)
--- NOTE | 2023-07-17 17:58 | Post Operative Brief Note ---
Immediate Post Op Note v1 Date of Surgery July 17, 2023 Pre & Post Diagnosis Operation Date: 07/17/23 14:50 Pre-Op Diagnosis: LEFT ANKLE WOUND I identified the patient and participated in the time-out.: Yes Procedure Operation Date: 07/17/23 14:50 Actual Procedures p Left Ankle Incision and Drainage, Debridment(Left) - Misha Cohen DPM, MS Surgeon Misha Cohen DPM, MS Medical Billing Representative none Estimated Blood Loss 3 Findings Consistent with Post-Op Diagnosis consistent with pre operative diagnosis Specimens Deep wound culture
--- NOTE | 2023-07-17 18:16 | Anesthesiology Progress Note ---
Date of Service July 17, 2023 Anesthesia Post Procedure Vital Signs Vital Signs: Temp Pulse Pulse Resp BP BP Pulse Ox 07/17/23 17:02 37.6 C H 72 15 152/106 H 95 07/17/23 15:37 36.9 C 70 16 150/80 H 95 07/17/23 15:00 71 07/17/23 11:54 36.7 C 64 14 166/97 H 95 07/17/23 08:11 36.8 C 77 16 143/85 H 95 07/17/23 08:00 07/17/23 07:00 71 07/17/23 04:04 68 07/16/23 23:53 36.7 C 68 18 152/81 H 94 07/16/23 20:29 36.5 C 84 17 148/82 H 94 O2 Del Method 07/17/23 17:02 Room Air 07/17/23 15:37 Room Air 07/17/23 15:00 07/17/23 11:54 Room Air 07/17/23 08:11 Room Air 07/17/23 08:00 Room Air 07/17/23 07:00 07/17/23 04:04 07/16/23 23:53 Room Air 07/16/23 20:29 Room Air Pain Intensity Left Ankle: Pain Intensity: 0 Transfer of Care Handoff Completed per policy Notes Mental Status: alert / awake / arousable Patient Amnestic to Procedure: Yes Nausea / Vomiting: adequately controlled Pain: adequately controlled Airway Patency, RR, SpO2: stable & adequate BP & HR: stable & adequate Hydration State: stable & adequate Anesthetic Complications: no major complications apparent and Pt Satisfied with anesthetic care
--- NOTE | 2023-07-17 21:33 | Operative Report ---
Post Operative Report Pre & Post Diagnosis Operation Date: 07/17/23 14:50 Pre-Op Diagnosis: LEFT ANKLE WOUND Post-Op Diagnosis: LEFT ANKLE WOUND I identified the patient and participated in the time-out.: Yes Procedure Operation Date: 07/17/23 14:50 Actual Procedures p Left Ankle Incision and Drainage, Debridment(Left) - Misha Cohen DPM, MS Surgeon Misha Cohen DPM, MS Musical Instrument Maker Or Repairer none Estimated Blood Loss 3 Findings Consistent with Post-Op Diagnosis consistent with pre operative diagnosis Specimens Deep wound culture left ankle Drains None Description of Procedure History of present illness: Patient is a 62-year-old male seen today for incision and drainage of left ankle and debridement of left ankle wound. Patient developed a high ankle sprain one month earlier and was placed in a controlled ankle motion boot. He developed a blister to the medial left ankle that progressed into a significant wound with cellulitis. MRI taken shows medial left ankle abscess. Purulent drainage is present from medial left ankle. All questions were answered. All potential risks, benefits, complications, alternatives, rehab, potential for incomplete relief of symptoms, need for further surgery, DVT, PE, , persistent pain, swelling, scarring, weakness, neurovascular, wound complications, and potential for amputations were discussed with patient. Unwanted outcomes such as, but not limited to were reviewed including under correction, overcorrection, return of deformity, infection. All questions were answered. Patient has decided to proceed with procedure as indicated. Preoperative diagnosis: Left ankle wound with necrotic soft tissue into muscle and tendon Postoperative diagnosis: Same Procedure in detail: 1.) Excision of necrotic soft tissue down to muscle and tendon left ankle 2.) Incision and drainage of left ankle abscess Surgeon: Dr. Cohen Musical Instrument Maker Or Repairer: none Anesthesia: Local monitored anesthesia care Hemostasis: none Estimated blood loss: 5 ml Specimens: None Procedure in detail: Under mild sedation the patient was brought in the operating room and placed on the operating table in supine position. Following sedation the foot and ankle were prepped scrubbed and draped in the usual aseptic manner. Attention was then directed to a left ankle wound with exposed necrotic tissue. The wound measures roughly 7 cm x 6 cm x 1 cm. Utilizing a sharp, sterile, #15 blade extensive debridement of necrotic devitalized soft tissue was achieved without incident. The wound bed was voided of all non-viable tissue. All bleeders were ligated and cauterized as necessary. At this time a 3 cm incision was placed over the fluctuance mass at the medial ankle. 5ml of Purulent drainage was released. The abscess did not traffic and was localized to the medial ankle. The abscess base was at the ankle joint but failed to invade the joint itself. 3L of Lactate ringer was utilized to flush the wound. The Patient tolerated procedure and anesthesia well he was transferred to recovery room vital signs stable and vascular status intact all remaining toes of the left foot following. Following a period of postoperative monitoring the patient will be discharged back to floor on the following written and postoperative oral instructions. Keep dressing clean dry and intact, avoid ambulation. Dr. Cohen for all postoperative care if any problems arise. I attest to the content of the Intraoperative Record and any orders documented therein. Any exceptions are noted below.
[2023-07-18] MEDS: ceFAZolin 2000MG 2,000 MG/15 ML SYR IV SCH ×4 (01:34→23:23)
--- NOTE | 2023-07-18 06:48 | Hospitalist Progress Note ---
Date of Service July 18, 2023 Assessment & Plan (1) Sepsis: (2) Acute hyponatremia: (3) Alcohol abuse: (4) Hypertension: (5) Hyperlipidemia: (6) Atrial flutter: (7) Cellulitis of left lower limb: (8) Open wound of left ankle: (9) Pre-diabetes: (10) Obstructive sleep apnea: Plan Pt is a 62 yo male with a past medical history of pre-diabetes, alcohol abuse, atrial flutter, EVELYN, HTN, and HLD who presents to the hospital on 07/15/22 for L ankle ulcer and cellulitis. Today, podiatry to see pt post-op. Continue IV cefazolin. Anticipate possible D/C tomorrow so plan to switch pt to oral ABs and restart home eliquis tomorrow morning as of this point, but will await further recommendations from podiatry first. Plan for total of 14 days of antibiotics. Sepsis Open wound of left ankle Cellulitis of left lower limb - stable and nontoxic appearing but came in with tachy, WBC 16, temp 39 C, lactate wnl - pt denies any leg ulcers or wounds similar to this in the past - recent ABIs this month wnl, pt has prediabetes - ankle MRI; fluid collection deep to wound, abscess vs hematoma, L leg cellulitis, no osteomyelitis - blood cx pending - wound cx pending - continue IV cefazolin - consulted podiatry; I+D/debridement done yesterday 07/17/22 Acute hyponatremia, improved -Patient noted to have a corrected sodium of 127 on admission, 131 today - pt asymptomatic - pt given 1L NSS in ED then 1.5L LR Alcohol abuse -Patient reports 3-4 cans of beer daily with occasional glasses of wine as well -Denies previous hx of alcohol withdrawal when he is not drinking -Last drink was 07/14/23 -No signs of active withdrawal at this time - continue PO folate and thiamine daily - AWSS protocol Hypertension -Continue lisinopril Pre-diabetes -Hold metformin -Monitor BSG ACHS, goal is 110-140 -Start CF 50 ACHS as he is insulin naive -HH/DMII diet -Adjust regimen as needed Atrial flutter -Stable -Continue metoprolol EVELYN - pt does not wear cpap at home Hyperlipidemia - home atorvastatin held as pt on daptomycin and thus increases risk for MSK adverse reactions, will resume tomorrow VTE Ppx: holding home rehan post-op Admission and Anticipated Discharge Date Admission Date: July 15, 2023 Supervising Physician Co-Signing Physician Notes I personally examined the patient and verified all deutsch points of history and exam, discussed case, and agree with decision making with Dr Tucker leg pain reasonable. feeling good overall. appreciative of care. d/w podiatry and input greatly appreciated. Vitals noted, in general he is awake and alert pleasant no distress. HEENT normocephalic atraumatic mucous membranes moist. resolving erythema LE, wound dressed. no significant tracking erthema Cellulitis/abscessfortunately no radiographic evidence of osteomyelitis or septic arthritis. did not present with severe sepsis/septic shock, nor does he appear to carry significant risk factors for nosocomial pathogens (did show Pseudomonas on a right toe culture from month ago, but nothing appearing overtly concerning for MRSA or Pseudomonas at this time). continue antibiotics to cover skin pathogens with cefazolin - would cover strep that is growing on Cx as well. podiatry input appreciated now post op and doing well. Alcohol abusefortunately no signs or symptoms of withdrawal. Supportive care. DVT prophylaxisLovenox - resume anticoagulation (chronic) likely by tomorrow Subjective Pt is a 62 yo male with a past medical history of pre-diabetes, alcohol abuse, atrial flutter, EVELYN, HTN, and HLD who presents to the hospital on 07/15/22 for L ankle ulcer and cellulitis. Today, pt states he is feeling great, no questions or concerns at this time, just states he is looking forward to hopefully going home soon. No chest pain or SOB. No fever or chills. Tolerating diet. Review of Systems Review of Systems: Per HPI. Physical Exam Physical Exam: General:Alert and oriented, no acute distress, HEENT: Normocephalic, moist oral mucosa, Resp: No increased work of breathing MSK: L leg with ignacio and foot erythema seeming improved from yesterday with area of redness regression, wound draining less than previously Skin: Warm, pink, dry, Psych: Mood-affect congruence. Results & Data Results & Data Vital Signs (Past 12 Hours) Vital Signs Temp Pulse Pulse Pulse Resp BP BP 07/18/23 03:16 36.5 C 75 18 147/89 H 07/17/23 23:09 36.7 C 70 18 131/79 07/17/23 22:00 73 07/17/23 20:11 36.7 C 78 18 160/89 H 07/17/23 19:35 73 16 162/87 H 07/17/23 18:53 72 Pulse Ox O2 Del Method 07/18/23 03:16 93 Room Air 07/17/23 23:09 92 Room Air 07/17/23 22:00 07/17/23 20:11 82 L Room Air 07/17/23 19:35 93 Room Air 07/17/23 18:53 Resident Activity Tracking Resident Involvement: Resident Care Provided Care Provided: Adult Hospital Medicine (4) Hypertension Hypertension type: essential hypertension Qualified Code(s): I10 - Essential (primary) hypertension (5) Hyperlipidemia Hyperlipidemia type: pure hypercholesterolemia Qualified Code(s): E78.00 - Pure hypercholesterolemia, unspecified; E78.0 - Pure hypercholesterolemia (8) Open wound of left ankle Encounter type: initial encounter Qualified Code(s): S91.002A - Unspecified open wound, left ankle, initial encounter
[2023-07-18 07:23] LABS: Basophils # (auto) 0.02 K/uL (0.00-0.20); Basophils % (auto) 0.3 %; Hematocrit (blood only) 37.3 % (42.0-52.0); Hemoglobin 12.2 g/dl (14.0-18.0); Immature Granulocytes % (auto) 1.4 %; Lymphocytes # (auto) 1.39 K/uL (1.20-3.40); Lymphocytes % (auto) 18.8 %; Mean Corpuscular Hemoglobin 28.5 pg (25.0-34.0); Mean Corpuscular Hgb Conc 32.7 g/dL (32.0-36.0); Mean Corpuscular Volume 87.1 fL (80.0-100.0); Mean Platelet Volume 8.9 fL (9.4-12.4); Monocytes # (auto) 0.43 K/uL (0.11-0.59); Monocytes % (auto) 5.8 %; Neutrophils # (auto) 5.46 K/uL (1.40-6.50); Neutrophils % (auto) 73.7 %; Platelet Count 291 K/uL (130-400); RDW Coefficient of Variation 12.2 % (11.5-14.5); RDW Standard Deviation 39.1 fL (36.4-46.3); Red Blood Count 4.28 M/uL (4.70-6.10)
[2023-07-18 07:50] LABS: BUN Creatinine Ratio 17.8 (10-20); Calcium 8.7 mg/dl (8.6-10.3); Creatinine Clr Calc Pharmacy 143.3 ml/min; Est GFR (African American) 114.4 ml/min; Est GFR (Non-African American) 98.7 ml/min; Potassium 4.7 mmol/L (3.5-5.1)
[2023-07-18 08:04] LABS: INR 1.1 (0.9-1.1); Prothrombin Time 11.7 Seconds (9.0-12.0)
[2023-07-18] MEDS: FOLIC ACID 1 MG TAB PO SCH (09:14)
[2023-07-18] MEDS: THIAMINE HCL 100 MG TAB PO SCH (09:14)
[2023-07-18] MEDS: METOPROLOL TARTRATE 25 MG TAB PO SCH ×2 (09:14→21:19)
[2023-07-18] MEDS: lisinopril 20 MG TAB PO SCH (09:14)
[2023-07-18] MEDS: INSULIN ASPART PER UNIT CHARGE SC SCH ×4 (09:32→21:17)
--- NOTE | 2023-07-18 12:54 | Billing Data ---
Date of Service July 18, 2023 Coding Level of Care Code 29616 SUB INP/OBS CARE
--- NOTE | 2023-07-18 22:08 | Orthopedic Progress Note ---
Date of Service July 18, 2023 Assessment & Plan (1) Open wound of left ankle: Plan: Patient seen, evaluated, and treated. Dressing change at bedside including adaptic, 4x4, kerlix, perfecto. Patient is weight bearing as tolerated. Patient ok for discharge per podiatry with appropriate Abx coverage. Patient will be seen in office Saturday07/22/23 for continued out patient care. Thank you for allowing me to participate in the care of this Patient. (2) Cellulitis of left lower limb: Admission and Anticipated Discharge Date Admission Date: July 15, 2023 Subjective Patient is seen at bedside this evening in room 277-1 in presence of . Patient is status post day #1 (DOS: 07/17/23) Incision and drainage left ankle, and wound debridement. Physical Exam Constitutional: well developed, well nourished, cooperative and comfortable Eyes: normal visual bettencourt by confrontation Neck: normal visual inspection and trachea midline Respiratory: normal respiratory effort Cardiovascular: Rate/Rhythm: regular rate and regular rhythm Vessels: posterior tibial pulses present and dorsalis pedis pulses present Skin: + ulcer (Left medial ankle full thicknes s into subcutaneous tissue), + erythema (medial ankle), + eschar and + incision (Open incision over I&D medial ankle) Results & Data Vital Signs (Past 12 Hours) Vital Signs Temp Pulse Pulse Resp BP BP Pulse Ox 07/18/23 19:00 36.8 C 69 18 151/82 H 95 07/18/23 17:26 67 07/18/23 15:22 36.7 C 72 14 133/78 94 07/18/23 11:37 36.6 C 60 15 166/92 H 94 O2 Del Method 07/18/23 19:00 Room Air 07/18/23 17:26 07/18/23 15:22 Room Air 07/18/23 11:37 Room Air Diagnostic Findings [facility] [address] [place] [address] / Director: Mehdi Webb M.D. Clinical Laboratory Report Name: JUAN C RICH Acct: [id number] Status: ADM IN : 1960 [facility] [place] Date: 07/15/23 Age: 62 Sex: M Dis Date: Loc: [address]/Bed: [facility] Spec: [id number] Collected: 07/16/23-1244 Received: 07/16/23-[address]: Jaimee Tucker DO Copy To: Drew Abraham MD Source: Ankle,Left OV Order: Ordered: Surf Wnd Cul/Sm Procedure Result Verified Site Gram Stain Final 07/16/23-144 Gram Stain Result Moderate Polys , Rare Epithelial Cells Many Gram Positive Cocci Surface Wound Culture Final 07/18/23-827 Organism 1 Group A Beta Strep Quantity Few Sens No Sensitivities to Follow Name: JUAN C RICH : 1960 PAGE 1 Printed: 07/18/23 3927 END OF REPORT (1) Open wound of left ankle Encounter type: initial encounter Qualified Code(s): S91.002A - Unspecified open wound, left ankle, initial encounter
[2023-07-19] MEDS: THIAMINE HCL 100 MG TAB PO SCH (08:14)
[2023-07-19] MEDS: METOPROLOL TARTRATE 25 MG TAB PO SCH (08:14)
[2023-07-19] MEDS: FOLIC ACID 1 MG TAB PO SCH (08:14)
[2023-07-19] MEDS: lisinopril 20 MG TAB PO SCH (08:14)
[2023-07-19] MEDS: ceFAZolin 2000MG 2,000 MG/15 ML SYR IV SCH (08:17)
[2023-07-19] MEDS ORDERED: APIXABAN 5 MG TABLET PO SCH (09:00)
[2023-07-19] MEDS: INSULIN ASPART PER UNIT CHARGE SC SCH (09:16)
--- NOTE | 2023-07-19 10:47 | Discharge Summary ---
Date of Service July 19, 2023 Admission HPI Per Admitting Provider Daryl is a 62 year old male with a PMH significant for prediabetes, atrial flutter on Eliquis, HTN, and EVELYN who presented to the [facility] ED on 07/15/23 with concerns for left ankle wound. He was noted to be tachycardic at 101 but was otherwise stable. Labs were significant for a lekocytosis of 16 with neutrophil predominance of 13, ESR of 67, CRP of 29, glucose of 234, corrected sodium of 127, chloride of 94, total bili of 1.4. Xray of the left ankle wa read as "No fractures or evidence for osteomyelitis within the left ankle. 2. Ankle soft tissue swelling.". Xray of the left foot was read as "1. No fractures. No e vidence for acute osteomyelitis within the left foot. 2. Mild joint space narrowing with periarticular erosions of the left first metatarsophalangeal joint. Adjacent soft tissue calcifications. The findings favor gout. Osteoarthritis could appear similar.". And xray of the left tiba/fib was read as "1. No fractures or evidence for osteomyelitis within the left tibia or fibula. 2. Left lower leg soft tissue swelling.". Prior to admission blood cultures were obtained. The patient was given 1L NSS, and a dose of zosyn and daptomycin prior to admission. At the time of the exam the patient was lying in bed in no acute distress. He states that he sustained a high ankle sprain on and was placed in a walking boot after. On 07/13 he took the boot off and noticed that the large blister on the medial aspect of his left ankle opened. He cleaned the wound and wrapped it. Over the past 48 hours he has developed progressive erythema, pustulous drainage, and swelling up the LLE. He states that he felt as though he had a fever but did not take his temperature. He woke up this am with significantly worsening symptoms prompting him to come to the ED. When asked, he states that he drinks approximately 3-4 can of beer daily and also drinks wine. His last drink was approximately 11 pm last night. He denies a previous hx of alcohol withdrawal when he has stopped drinking in the past. He denies current chest pain, SOB, abd pain, nausea, vomiting, diarrhea, dysuria, hematuria, melena, and recent trauma since spraining his left ankle. He is a full code and wishes for his to make medical decisions for him if he cannot make them himself. Please refer to Dr. Abraham's attestation for any changes to the treatment plan Admission Exam Per Admitting Provider Physical Exam: General: In no acute distress, stated age, well-nourished, non-toxic appearing HEENT: Normocephalic, atraumatic, no scleral icterus, pupils around round, symmetrical, and reactive to light, drymucus membranes, trachea midline, no thyromegaly Chest/Pulm: No respiratory distress, symmetrical chest expansion, clear breath sounds throughout Cardiac: RRR, no murmurs noted Abdomen: Negative for ascites and bruising, normoactive bowel sounds, soft, non- tender to palpation throughout Musculoskeletal: Left LE is significantly swollen and erythematous from the distal ankle to the mid left calf, large circular wound overlying the left medial ankle with necrotic tissue and purulent drainage Extremities: Radial, dorsalis pedis, and posterior tibial pulses are intact and symmetrical, LLE erythematous and swollen compared to right Skin: Signs consistent with cellulitis of the LLE with associated drainage left medial ankle wound Neuro: Alert and oriented to person, place, month, year, and president, no focal defects, no tremors noted Psych: No acute distress, calm and cooperative during the exam Principal Diagnosis Left leg cellulitis with left ankle ulcer with abscess Discharge Exam General:Alert and oriented, no acute distress, HEENT: Normocephalic, moist oral mucosa, Resp: No increased work of breathing MSK: L leg with ignacio and foot erythema seeming improved from yesterday with area of redness regression, wound draining less than previously Skin: Warm, pink, dry, Psych: Mood-affect congruence. Discharge Data Allergies Allergy/AdvReac Type Severity Reaction Status Date / Time No Known Drug Allergies Allergy Verified 07/15/23 13:04 Consultations 07/15/23 12:41 ED Decision to Admit Stat 07/16/23 14:13 Consult Podiatry Routine Procedures Performed Operation Date: 07/17/23 14:50 Actual Procedures p Left Ankle Incision and Drainage, Debridment(Left) - Misha Cohen DPM, MS Ordered Studies 07/15/23 13:35 MRI Leg [MR lower leg LT wo con] Urgent 07/15/23 14:07 MR ankle LT wo con Urgent Hospital Course (1) Sepsis: (2) Acute hyponatremia: (3) Alcohol abuse: (4) Hypertension: (5) Hyperlipidemia: (6) Atrial flutter: (7) Cellulitis of left lower limb: (8) Open wound of left ankle: (9) Pre-diabetes: (10) Obstructive sleep apnea: Plan Pt is a 62 yo male with a past medical history of pre-diabetes, alcohol abuse, atrial flutter, EVELYN, HTN, and HLD who presents to the hospital on 07/15/22 for L ankle ulcer and cellulitis. Pt is wishing to go home and has been stable. He is s/p debridement 07/17/23. Leg area of erythema is improving. Pt has f/u with Dr. Cohen on Saturday 07/22. Will send home with po Keflex 500 TID for total of 14 days ABs. F/u with wound care. Sepsis Open wound of left ankle Cellulitis of left lower limb - stable and nontoxic appearing but came in with tachy, WBC 16, temp 39 C, lactate wnl - pt denies any leg ulcers or wounds similar to this in the past - recent ABIs this month wnl, pt has prediabetes - ankle MRI; fluid collection deep to wound, abscess vs hematoma, L leg cellulitis, no osteomyelitis - blood cx pending; neg at 48 hours - wound cx pending; group A beta strep - IV cefazolin, transition to po on D/C - consulted podiatry; I+D/debridement done 07/17/22, will f/u in office saturday Acute hyponatremia, improved -Patient noted to have a corrected sodium of 127 on admission, 131 today - pt asymptomatic - pt given 1L NSS in ED then 1.5L LR Alcohol abuse -Patient reports 3-4 cans of beer daily with occasional glasses of wine as well -Denies previous hx of alcohol withdrawal when he is not drinking -Last drink was 07/14/23 -No signs of active withdrawal at this time - continue PO folate and thiamine daily - AWSS protocol Hypertension -Continue lisinopril Pre-diabetes -Hold metformin -Monitor BSG ACHS, goal is 110-140 -Start CF 50 ACHS as he is insulin naive -HH/DMII diet -Adjust regimen as needed Atrial flutter -Stable -Continue metoprolol EVELYN - pt does not wear cpap at home Hyperlipidemia - home atorvastatin held as pt on daptomycin at first, can resume on D/C Total Time Total Time Spent Total Time Spent (In Minutes): <30 Discharge Plan Discharge Items Patient Disposition: Home - Self-Care Reason For Visit: LEFT ANKLE WOUND Discharge Diagnosis: Left leg cellulitis with left ankle ulcer with abscess Activity: Per Instructions section Non-emergency contact: Primary Care Provider and Specialist Call non-emergency contact if: you have any medication questions, your symptoms worsen, your temperature is above 101, your wound has increased redness, your wound has increased drainage and your wound pain has increased Follow-up/Referrals: Carolyn Kennedy DO [Primary Care Provider] - 07/29/23 11:00 am Misha Cohen DPM, MS [Physician] - Diet: Regular Addtl Attending Provider Instructions: You were admitted for left ankle ulcer wound and left leg cellulitis. You were treated with antibiotics and had a procedure with Dr. Cohen on 07/17/23 to clean the wound out and drain excess fluid. Your symptoms have improved, and we feel it is safe for you to return home. You have a follow-up appointment with Dr. Cohen on Saturday07/22/23 to check on the wound. You will also have an antibiotic to slate picker listed below. Please do not stop taking the antibiotic early unless advised by your PCP or Dr. Cohen. Medications: Your medication list has been reviewed and reconciled upon discharge to ensure accuracy and continuity of care. An updated list of all your medications is included with your hospital discharge paperwork. Please review this list closely, and make note of any changes. We sent a new medication called Cephalexin (Keflex) to your pharmacy. Take Cephalexin (Keflex) 500mg (1 capsule) three times a day until you are out of pills. You got your morning dose here at the hospital, take your morning and afternoon dose at home. This course gives you a full 14 day course of antibiotics taking into account what you got here at the hospital. This medication has been sent to your pharmacy [facility]. Take your medications as instructed; do not skip a dose of your medicines. Make sure all of your doctors know every medicine you are taking (including yavl-[id number]-cvlpjto medicines, vitamins, and supplements). Call your primary care provider before taking any new medicines (including over- the-counter medicines, vitamins, and supplements), because some of these may interact with your current medications, or may make your symptoms worse. Tell your primary care provider if you cannot afford your medications. Activity: You can do normal everyday activities as your body allows. Take rest breaks if you feel tired. Do not overexert. Stop activity if you have pain, shortness of breath or feel dizzy. Follow-up appointments: Make an appointment with your primary care physician within one week of discharge. A copy of this summary will be sent to them. Every time you see your primary care physician, or any other doctor, bring your medication list, and a list of questions. CONTACT YOUR PRIMARY CARE PROVIDER if you experience any of the following: Shortness of breath or difficulty breathing Swelling of your feet, ankles, hands or abdomen Feeling tired with normal activity or experiencing dizziness or fainting Difficulty following your treatment plan, or difficulty taking medications Increasing redness or drainage from the wound, or fever of 101 F CALL 911 OR GO TO THE EMERGENCY DEPARTMENT if you experience any of the following: Severe abdominal pain or nausea/vomiting Severe chest pain, or chest pain that radiates (moves) to your jaw or arm Sudden, severe shortness of breath or difficulty breathing Thank you for allowing us to participate in your care. Pending Studies at Discharge: No Stand-Alone Forms: My [facility] Medications and DC Order Prescriptions: New cephalexin 500 mg capsule 500 mg PO TID 13 Days Qty: 38 0RF Continued atorvastatin 40 mg tablet 40 mg PO QAM Qty: 90 3RF tadalafil 20 mg tablet 20 mg PO 3XWK PRN (Reason: sexual activity) Qty: 6 7RF lisinopril 20 mg tablet 20 mg PO QAM Qty: 90 3RF meloxicam 15 mg tablet 15 mg PO DAILY PRN (Reason: bursitis ) Qty: 30 2RF omeprazole 40 mg capsule,delayed release(DR/EC) 40 mg PO DAILY PRN (Reason: other) Qty: 30 0RF Rx Instructions: take while on meloxicam metoprolol tartrate 25 mg tablet 25 mg PO BID Qty: 180 3RF Eliquis 5 mg tablet 5 mg PO BID Qty: 180 2RF multivitamin Tablet 1 tab PO QAM milk thistle 150 mg Capsule 150 mg PO QAM coenzyme Q10 [Co Q-10] 200 mg Capsule 200 mg PO QAM cod liver oil 240-1,000 mg Capsule 1 cap PO QAM azelastine 137 mcg (0.1 %) aerosol,spray 2 spray INTNAS PM fluticasone propionate 50 mcg/actuation spray,suspension 2 spray intranasal PM metformin 500 mg tablet extended release 24 hr 500 mg PO QAM Discharge Orders: Discharge Order (Routine); Ordered 07/19/23 Ordered By: Jaimee Lindo/Other Patient Handouts: Nutrition for Wound Healing, Diabetes: Meal Planning, Type 2 Diabetes Admission Data Admit Date/Time: 07/15/23 13:20 Attending Provider: Laz Johnson Admit Provider: Drew Abraham Primary Care Provider: Carolyn Kennedy Other Providers: Drew Abraham; Misha Cohen Other Interventions: Discharge Summary Assessment (RN) Last Done: 07/19/23 11:27 Supervising Physician Co-Signing Physician Notes I personally examined the patient and verified all deutsch points of history and exam, discussed case, and agree with decision making with Dr Tucker Leg feels good overall. Feels up to going home. Podiatry input appreciated. Vitals noted, in general he is awake and alert pleasant no distress. HEENT normocephalic atraumatic mucous membranes moist. resolving erythema LE, wound dressed. no significant tracking erythema Cellulitis/abscessfortunately no radiographic evidence of osteomyelitis or septic arthritis. did not present with severe sepsis/septic shock, nor does he appear to carry significant risk factors for nosocomial pathogens (did show Pseudomonas on a right toe culture from month ago, but nothing appearing overtly concerning for MRSA or Pseudomonas at this time). Safe/stable for homehas improved nicely on cefazolinwill send home on cephalexinpresumptive 14 days of treatment, but obviously the duration will be more contingent on his improvement. Set up with podiatry follow-up on Saturday. Asked to get him set up with his PCP for the following week. Alcohol abusefortunately no signs or symptoms of withdrawal. Supportive care. Resident Activity Tracking Resident Involvement: Resident Care Provided Care Provided: Adult Hospital Medicine
--- NOTE | 2023-07-19 19:59 | Billing Data ---
Date of Service July 19, 2023 Coding Level of Care Code 21404 IN/OBS DISCH 30 MIN/LESS
--- NOTE | 2023-07-24 05:53 | Coding Query ---
DEBRIDEMENT DOCUMENTATION To promote full compliance with coding requirements relating to patient care, physician participation is requested in all cases of diamond sorter uncertainty. Please assist us with the question(s) below: Please place an X in the parenthesis (x). If other, please document the finding: Type of Debridement: (x ) Excisional Debridement- Cutting away necrotic, devitalized tissue or slough to the level of viable tissue using a sharp instrument (i.e. scalpel, scissors, etc.) ( ) Non Excisional Debridement- The removal of necrotic, devitalized tissue or slough by means of scraping, mechanical brushing, flushing, or washing (i.e. irrigation,whirlpool);minor removal of loose fragments. ( ) Other (please specify): Instrument Used: ( ) Scissors (x ) Scalpel ( ) Curette ( ) Other (please specify): Depth of Debridement: ( ) Skin ( ) Skin and Subcutaneous Tissue ( ) Skin, Subcutaneous Tissue and Muscle (x ) Skin, Subcutaneous Tissue, Muscle and Bone ( ) Other (please specify): Please Specify the Size of Debridement in cm2: Thank you Mark ONOFRE [facility]
--- NOTE | 2023-07-24 05:54 | Coding Query ---
PRESSURE ULCER DOCUMENTATION To promote full compliance with coding requirements relating to patient care, physician participation is requested in all cases of odd ticket clerk uncertainty. Please assist us with the question(s) below: Please specify the known or suspected type by placing an "X" within the parenthesis (x). A pressure ulcer of the (GENERAL PRODUCTION MANAGER INSERT SITE) If possible, please check the box that provides the specific stage of the pressure ulcer ( ) Stage I ( ) Stage II ( ) Stage III ( ) Stage IV ( x) Unstageable Was the pressure ulcer present on admission? Please check the appropriate box for the pressure ulcer: (x ) Present on admission ( ) Not present on admission ( ) Unable to be clinically determined Thank you Mark ONOFRE [facility]
== END 2023-07-19 12:05 | disposition home or self-care (01) | DRG 854 ==
LOC: ED 10:34 → SUATTDRO 13:20 → EDINP 13:20 → 2N 15:36